=== PATIENT | male | born 1955 | race Caucasian/White ===

== ENCOUNTER 2017-02-06 15:23 | Inpatient (IN) ==
[2017-02-06 16:00] LABS: Basophils # 0.1 K/mcL (0.0-0.2); Basophils % 0.4 %; Hematocrit 38.3 % (37.5-50.1); Hemoglobin 12.5 g/dL (12.9-16.9); Immature Granulocytes % 0.6 % (0-4); Lymphocytes # 2.2 K/mcL (0.6-4.6); Lymphocytes % 14.3 %; Mean Corpuscular HGB Conc 32.6 g/dL (31.6-35.5); Mean Corpuscular Hemoglobin 26.7 pg (28.0-33.3); Mean Corpuscular Volume 81.8 fL (83.0-100.0); Mean Platelet Volume 10.7 fL (9.4-12.4); Monocytes # 2.2 K/mcL (0.0-1.3); Monocytes % 13.8 %; Neutrophils # 11.1 K/mcL (1.6-8.9); Platelet Count 288 K/mcL (140-400); Red Blood Count 4.68 M/mcL (4.19-5.50); Red Cell Distribution Width 15.3 % (11.5-14.5); Segmented Neutrophils % 70.9 %
[2017-02-06 16:19] LABS: INR 1.5; Prothrombin Time 16.6 Seconds (9.4-12.1)
[2017-02-06 16:22] LABS: Activated Partial Thrombo Time 31.3 Seconds (26.0-36.0)
[2017-02-06 16:49] LABS: BUN/Creatinine Ratio 12 (6-26); Blood Urea Nitrogen 13 mg/dL (8-26); Calcium 9.9 mg/dL (8.6-10.8); Carbon Dioxide 22 mEq/L (19-29); Chloride 101 mEq/L (98-109); Glucose 115 mg/dL (70-99); Osmolality,Calculated 285 (280-300); Potassium 3.7 mEq/L (3.5-4.5); Sodium 137 mEq/L (136-145); eGFR For African Americans > 60 (> 60); eGFR For Non-African Americans > 60 (> 60)
[2017-02-06] MEDS ORDERED: *HR* Heparin 5,000 UNIT/ML VIAL IVP PRN ×2 (16:54)
[2017-02-06] MEDS ORDERED: *HR* Heparin 5,000 UNIT/ML VIAL IVP ONE (16:54)
[2017-02-06] MEDS: Heparin 25,000 UNIT/500 ML D5W 25,000 UNIT/500 ML MLS IVC SCH (17:26)
--- NOTE | 2017-02-06 18:10 | Emergency Department Note ---
Disposition Clinical Impression: Pulmonary emboli Qualifiers: Pulmonary embolism type: other Chronicity: acute Acute cor pulmonale presence: without acute cor pulmonale Qualified Code(s): I26.99 - Other pulmonary embolism without acute cor pulmonale Deep venous thrombosis Qualifiers: DVT location: lower extremity Affected thrombotic vein of extremity: femoral Chronicity: acute Laterality: right Qualified Code(s): I82.411 - Acute embolism and thrombosis of right femoral vein Disposition: Admitted As Inpatient Condition: Good [facility] Care Provider[facility] - Time of Disposition: 18:32 General Adult HPI - General Chief complaint: ED Extremity Problem,Nontraumatic Stated complaint: DVT,PE Time Seen by Provider: 02/06/17 15:24 Source: patient, EMS Mode of arrival: EMS Limitations: no limitations Nursing Notes Reviewed: Yes Vital Signs Reviewed: Yes - History of Present Illness HPI Narrative: Patient presents from the [facility] for evaluation of DVT and pulmonary emboli. Shortness of breath about another facility. No other concerns or issues. He currently is on Onset (ago): day(s) Radiation: non-radiation Pain Scale: 0 Improves with: rest Worsens with: movement Associated symptoms: Reports: shortness of breath Treatments Prior to Arrival: none - Related Data Previous Rx's Medication Instructions Recorded Aspirin 81 mg PO DAILY #30 tab.chew 09/30/15 Diltiazem CD (24hr) [Cardizem CD] 120 mg PO DAILY #20 cap.er.24h 09/30/15 Allergies Allergy/AdvReac Type Severity Reaction Status Date / Time Horse/Equine Containing Allergy Rash Verified 09/30/15 17:04 Products meperidine [From Demerol] Allergy Flushing Verified 09/30/15 17:04 Penicillins [PCN] Allergy Anaphylaxis Verified 09/30/15 17:04 All systems ED: reviewed and negative except as stated. Review of Systems: As Per HPI Constitutional: Denies: fever, chills, weakness Cardiovascular: Reports: dyspnea on exertion, orthopnea. Denies: chest pain, palpitations, edema Respiratory: Reports: dyspnea. Denies: cough, wheezes, hemoptysis Gastrointestinal: Denies: nausea, vomiting, diarrhea Musculoskeletal: Denies: back pain, neck pain Neurological: Denies: headache Endocrine: Denies: fatigue Past Medical History - Past Medical History Attestation: Yes The following information was validated with the patient. Source: patient Medical history: Reports: arthritis, asthma, COPD, GERD, hyperlipidemia Psychiatric history: Reports: depression - Social History Smoking Status: Former smoker Smokeless Tobacco Status: No Alcohol use: Reports: none Drug use: Reports: marijuana Physical Exam - General Limitations: no limitations General appearance: alert - Head Head exam: atraumatic, normocephalic, normal inspection - Neck Neck exam: Present: normal inspection, full ROM, trachea midline - Chest Chest inspection: Present: normal inspection, symmetric chest wall rise - Respiratory Respiratory exam: Present: normal lung sounds bilaterally, respiratory distress. Absent: wheezes, stridor, accessory muscle use - Cardiovascular Cardiovascular exam: Present: regular rate, normal rhythm, normal heart sounds - Extremities Exam Extremities exam: Present: normal inspection, tenderness, normal capillary refill, calf tenderness - Back Exam Back exam: Present: normal inspection - Neurological Exam Neurological exam: Present: alert, oriented X3, CN II-XII intact, normal gait - Skin Skin exam: Present: warm, dry, intact, normal color Course Course Narrative: Patient seen and examined at the time of arrival. See history of present illness. 61-year-old male with known DVT presents with propagation of his DVT as well as bilateral pulmonary emboli. Seen in outside facility for evaluation and management. He is currently on anticoagulation Eliquis. He denies any chest pain fevers chills nausea vomiting or diarrhea. Denies any headache or vision change. He has had persistently worsening shortness of breath. Patient otherwise is comfortable and in no apparent distress on presentation but he is slightly anxious secondary to the new diagnosis. He is concerned about having some other medical issue. Vital signs reviewed on presentation patient is otherwise stable. EKG shows sinus rhythm with no acute signs of ST segment elevation or myocardial infarction. CT angiography as well as Dopplers were reviewed from the outside facility. Patient had coagulation studies ordered at this time as well as hemoglobin. He denies any rectal bleed as well as any history of bleeding disorder. A stat echocardiogram was ordered secondary to shortness of breath and clot burden to make sure he does not have any acute signs of right heart strain. Disposition will be admission the hospital heparin drip to be were started during this treatment course. Patient is otherwise stable resting comfortably in the bed. We will continue to monitor his treatment course is completed. - Reevaluation(s) Reevaluation #1: Patient found to have stable laboratory workup. Echo shows no acute signs of right heart strain. Consultation placed to the vascular surgeon to make sure there is no need for intervention including IVC filter. They will see the patient in consult. Conversation was had with the hospitalist Miguel Miller.. We reviewed the patient's presentation symptoms medical intervention. He will be brought the hospital for definitive management. No other recommendations or issues noted. Patient is otherwise stable resting comfortably in the bed at this time. Continue to monitor the patient here in the emergency room and to the admission process is completed Time: 18:29 Vital Signs Temperature 99.3 F 02/06/17 15:25 Pulse Rate 97 02/06/17 15:25 Respiratory Rate 18 02/06/17 15:25 Blood Pressure 137/90 02/06/17 15:25 O2 Sat by Pulse Oximetry 99 02/06/17 15:25 Temperature 99.3 F 02/06/17 15:25 Pulse Rate 97 02/06/17 16:50 Respiratory Rate 20 02/06/17 16:50 Blood Pressure 145/72 02/06/17 16:50 O2 Sat by Pulse Oximetry 97 02/06/17 16:50 Oxygen Delivery Oxygen Delivery Room Air Medical Decision Making - MDM Narrative Medical decision making narrative: Pulmonary emboli, lower extremity DVT - Medical Records Medical records reviewed: Yes I reviewed the patient's medical records. - Lab Data Lab results reviewed: Yes I reviewed the patient's lab results. Result diagrams: 02/06/17 15:52 02/06/17 15:52 Lab Results 02/06/17 02/06/17 02/06/17 Range/Units 15:52 15:52 15:52 WBC 15.6 H (4.3-11.1) K/mcL RBC 4.68 (4.19-5.50) M/mcL Hgb 12.5 L (12.9-16.9) g/dL Hct 38.3 (37.5-50.1) % MCV 81.8 L (83.0-100.0) fL MCH 26.7 L (28.0-33.3) pg MCHC 32.6 (31.6-35.5) g/dL RDW 15.3 H (11.5-14.5) % Plt Count 288 (140-400) K/mcL MPV 10.7 (9.4-12.4) fL Immature Gran % 0.6 (0-4) % Seg Neutrophils % 70.9 % Lymphocytes % 14.3 % Monocytes % 13.8 % Eosinophils % 0.0 % Basophils % 0.4 % Neutrophils # 11.1 H (1.6-8.9) K/mcL Lymphocytes # 2.2 (0.6-4.6) K/mcL Monocytes # 2.2 H (0.0-1.3) K/mcL Eosinophils # 0.0 (0.0-0.6) K/mcL Basophils # 0.1 (0.0-0.2) K/mcL PT 16.6 H (9.4-12.1) Seconds INR 1.5 APTT 31.3 (26.0-36.0) Seconds Sodium 137 (136-145) mEq/L Potassium 3.7 (3.5-4.5) mEq/L Chloride 101 (98-109) mEq/L Carbon Dioxide 22 (19-29) mEq/L BUN 13 (8-26) mg/dL Creatinine 1.09 (0.72-1.25) mg/dL Est GFR ( Amer) > 60 (> 60) Est GFR (Non-Af Amer) > 60 (> 60) BUN/Creatinine Ratio 12 (6-26) Glucose 115 H (70-99) mg/dL Calculated Osmolality 285 (280-300) Calcium 9.9 (8.6-10.8) mg/dL Troponin I (0-0.03) ng/mL 02/06/17 Range/Units 15:52 WBC (4.3-11.1) K/mcL RBC (4.19-5.50) M/mcL Hgb (12.9-16.9) g/dL Hct (37.5-50.1) % MCV (83.0-100.0) fL MCH (28.0-33.3) pg MCHC (31.6-35.5) g/dL RDW (11.5-14.5) % Plt Count (140-400) K/mcL MPV (9.4-12.4) fL Immature Gran % (0-4) % Seg Neutrophils % % Lymphocytes % % Monocytes % % Eosinophils % % Basophils % % Neutrophils # (1.6-8.9) K/mcL Lymphocytes # (0.6-4.6) K/mcL Monocytes # (0.0-1.3) K/mcL Eosinophils # (0.0-0.6) K/mcL Basophils # (0.0-0.2) K/mcL PT (9.4-12.1) Seconds INR APTT (26.0-36.0) Seconds Sodium (136-145) mEq/L Potassium (3.5-4.5) mEq/L Chloride (98-109) mEq/L Carbon Dioxide (19-29) mEq/L BUN (8-26) mg/dL Creatinine (0.72-1.25) mg/dL Est GFR ( Amer) (> 60) Est GFR (Non-Af Amer) (> 60) BUN/Creatinine Ratio (6-26) Glucose (70-99) mg/dL Calculated Osmolality (280-300) Calcium (8.6-10.8) mg/dL Troponin I 0.01 (0-0.03) ng/mL - Radiology Data Radiology results reviewed: Yes I reviewed the patient's radiology results. Reviewed from outside facility - EKG Data EKG #1 EKG attestation: Yes I reviewed and interpreted this EKG. EKG results narrative: Sinus rhythm based on EKG 96. Atenolol of 155. QRS duration of 102. QTC of 408. No acute signs of ST segment elevation myocardial infarction. Compared to EKG on 09/30/15 EKG shows normal: sinus rhythm, axis, intervals, QRS complexes, ST-T waves Rate: normal Critical Care Time Critical Care Time: Yes Total Critical Care Time: 35 Attestation: Critical care performed: Time is exclusive of separately billable procedures. Time includes: direct patient care, patient reassessment, coordination of patient care, interpretation of data (laboratory data, radiology data, and respiratory data), review of patient's medical records, medical consultation and documentation of patient care. Procedures included in critical care time: Procedures excluded from critical care time:
--- NOTE | 2017-02-06 20:04 | Internal Med History&Physical ---
Date of Encounter: 02/06/17 Time of Encounter: 19:59 Assessment and Plan (1) Pulmonary emboli Current visit: Yes Status: Acute Patient was diagnosed with right lower extremity DVT on January 05 and he was attempted to be treated with Eliquis. He failed anticoagulation treatment with Eliquis and now has returned with bilateral PE. Eliquis health and is stopped and IV heparin started. ER has consulted Dr. Berger for possible IVC filter it would be reasonable to switch him to Coumadin at this point after decision is made. Qualifiers: Pulmonary embolism type: other Chronicity: acute Acute cor pulmonale presence: without acute cor pulmonale Qualified Code(s): I26.99 - Other pulmonary embolism without acute cor pulmonale (2) Deep venous thrombosis Current visit: Yes Status: Acute Recently diagnosed right lower extremity DVT which has extended however I am is still not able to retrieve the today's ultrasound and CTA. 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 We noted he is on clindamycin? Need to review her record. Internal Medicine - H&P: HPI Chief complaint: Shortness of breath and right lower extremity pain Admitted From: Home Plans for Post Hospital Care: Home History of present illness: Mr. Devlin is a 61 year old male past medical history significant for recently diagnosed right lower extremity DVT, hypertension dyslipidemia SLE fibromyalgia and GERD. On 01/05/2017 he was diagnosed with right lower extremity DVT and was started on Eliquis. Since yesterday he has not been feeling well and pain has increased quite significantly. He was also becoming dyspneic. He came to the ER where he was diagnosed with bilateral PE as well as reconfirming right lower extremity DVT. I could not find those test in our record and her last nursing staff to bring a copy for us. In any case in ER there was a concern for right heart strain therefore an urgent echo was performed which showed normal LV ejection fraction as well as no wall motion abnormality and no right heart strain pattern. His Eliquis has been discontinued and now he is restarted on IV heparin. Vascular surgeon is consulted by ER with a question if he needs IV filter. At this time I think it would be reasonable to switch him to Coumadin. 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 He is a still on medication including Clindamycin ? ? for that. He had multiple surgeries in the past. He does not smoke neither does he have any history of cancer in the past. Past Med Surg Social Fam HX - Past Medical History Medical history: arthritis, asthma, COPD, GERD, hyperlipidemia Psychiatric history: depression - Social History Smoking Status: Former smoker Smokeless Tobacco Status: No Alcohol use: none Drug use: marijuana Internal Medicine - H&P: Meds Diltiazem CD (24hr) [Cardizem CD] 120 mg PO DAILY #20 cap.er.24h 09/30/15 [Rx] Acetaminophen [Tylenol] 650 mg PO TID 02/06/17 [History] Albuterol Sulfate [Albuterol Inhaler] 2 puff IH QID PRN 02/06/17 [History] Apixaban [Eliquis] 10 mg PO BID 02/06/17 [History] Atorvastatin Calcium [Lipitor] 20 mg PO HS 02/06/17 [History] Budesonide/Formoterol 160/4.5 [Symbicort 160/4.5] 2 puff IH BIDR 02/06/17 [ History] Cholecalciferol (D-3) [Vitamin D] 2,000 unit PO DAILY 02/06/17 [History] Clindamycin [Cleocin] 450 mg PO Q8H 02/06/17 [History] Flecainide 100 mg PO Q12HR 02/06/17 [History] Fluconazole [Diflucan] 400 mg PO DAILY 02/06/17 [History] Lisinopril [Zestril] 20 mg PO DAILY 02/06/17 [History] Loperamide HCl [Imodium A-D] 2 mg PO Q6H PRN 02/06/17 [History] Loratadine [Claritin] 10 mg PO DAILY 02/06/17 [History] Methocarbamol [Robaxin] 500 mg PO Q8HR 02/06/17 [History] Omeprazole [PriLOSEC] 20 mg PO BIDAC 02/06/17 [History] Pregabalin [Lyrica] 150 mg PO TID 02/06/17 [History] Salsalate [Disalcid] 750 mg PO BID 02/06/17 [History] Testosterone [Androgel] 20.25 mg TP DAILY 02/06/17 [History] Venlafaxine XR (24 HR) [Effexor XR] 150 mg PO DAILY 02/06/17 [History] guaiFENesin [Guaifenesin] 400 mg PO Q12H PRN 02/06/17 [History] hydroCHLOROthiazide [Hydrochlorothiazide] 12.5 mg PO DAILY 02/06/17 [History] 3 Allergy/AdvReac Type Severity Reaction Status Date / Time Horse/Equine Containing Allergy Rash Verified 09/30/15 17:04 Products meperidine [From Demerol] Allergy Flushing Verified 09/30/15 17:04 Penicillins [PCN] Allergy Anaphylaxis Verified 09/30/15 17:04 All Systems PM: A 10-system review of systems was performed and is negative for pertinent findings except as documented above in the HPI. - Constitutional Constitutional: excessive sweating, fatigue, no chills, no fever(s), no night sweats - EENT Eyes: no change in vision, no discharge, no pain, no photophobia Ears: no ear discharge, no ear pain, no tinnitus Nose, mouth and throat: no dysphagia, no nasal discharge, no neck pain, no sore throat - Cardiovascular Cardiovascular ROS IM: diaphoresis, dyspnea, no chest pain, no lightheadedness, no palpitations, no syncope - Respiratory Respiratory: no cough, no dyspnea, no wheezing, no excessive phlegm production - Gastrointestinal Gastrointestinal: no abdominal pain, no diarrhea, no hematemesis, no hematochezia, no melena, no nausea, no vomiting - Musculoskeletal Musculoskeletal ROS IM: no numbness, no tingling - Integumentary Integumentary IM: no rash, no unusual bruising - Neurological Neurological ROS: no confusion, no convulsions, no focal weakness, no numbness, no tingling, no tremor(s) - Hematologic/Lymphatic Hematologic/Lymphatic: no easy bruising - Constitutional Vitals: Temp Pulse Resp BP Pulse Ox 99.3 F 94 14 115/91 98 02/06/17 15:25 02/06/17 19:06 02/06/17 19:31 02/06/17 19:31 02/06/17 19:06 General appearance: Present: mild distress, A&O X 3, morbidly obese, pleasant, answers questions appropriately - Head Head exam: Present: atraumatic, normocephalic - Eye Eye exam: Present: PERRL, conjuntiva pink, sclera anicteric Pupils: Present: PERRL - Neck Neck exam general surgery: Present: supple, trachea midline. Absent: lymphadenopathy - Respiratory Respiratory exam: Present: decreased breath sounds. Absent: accessory muscle use, rales, rhonchi, wheezes - Cardiovascular Cardiovascular exam: Present: RRR, +S1, +S2. Absent: diastolic murmur, gallop, rubs, systolic murmur - GI/Abdominal GI/Abdominal exam: Present: normal bowel sounds, soft, no peritoneal signs. Absent: distended, tenderness - Extremities Exam Extremities exam: Present: warm, radial pulses palpable and symmetrical. Absent : calf tenderness, cyanotic, pedal edema - Neurological Exam Neurological exam: Present: CN II-XII intact, oriented X3, no focal deficits. Absent: pronater drift, facial droop, speech deficit - Skin Skin exam: Present: dry, intact Internal Med - H&P Results - Labs CBC & Chem 7: 02/06/17 15:52 02/06/17 15:52
[2017-02-06] MEDS ORDERED: Ondansetron 4 MG/2 ML VIAL IVP PRN (20:13)
[2017-02-06] MEDS ORDERED: Naloxone 0.4 MG/ML INJ IVP PRN (20:13)
[2017-02-06] MEDS ORDERED: GuaiFENesin Liq 200 MG/10 ML UDC PO PRN (20:18)
[2017-02-06] MEDS: SALSALATE 750 MG PO SCH (22:11)
[2017-02-06] MEDS: Pregabalin 75 MG CAPSULE PO SCH (22:18)
[2017-02-06] MEDS: *HR* HYDROcodone/Acet 5/325 mg TABLET PO PRN (22:18)
[2017-02-06] MEDS: 0.9 % Sodium Chloride 1,000 ML IVC SCH (22:19)
--- NOTE | 2017-02-06 23:13 | Vascular/Endovasc Consult Note ---
Date of Encounter: 02/06/17 Time of Encounter: 19:00 Assessment and Plan (1) Pulmonary emboli Current Visit: Yes Status: Acute The pathophysiology and natural history of deep vein thrombosis and pulmonary emboli was discussed with the patient and all questions were answered. The patient has a history of DVT nd was treated with apixiban. He now has a larger DVT and pulmonary emboli. He has failed apixiban and will likely need alternative anticoagulation with coumadin. Given the failure of anticoagulation , his decreased lung capacity due to prior lung resection and his recent pulmonary emboli. He may benefit from an IVC filter placement. The risks, benefits and alternatives were discussed and all questions were answered. Qualifiers: Pulmonary embolism type: other Chronicity: acute Acute cor pulmonale presence: without acute cor pulmonale Qualified Code(s): I26.99 - Other pulmonary embolism without acute cor pulmonale (2) Deep venous thrombosis Current Visit: Yes Status: Acute Qualifiers: DVT location: lower extremity Affected thrombotic vein of extremity: femoral Chronicity: acute Laterality: right Qualified Code(s): I82.411 - Acute embolism and thrombosis of right femoral vein (3) Hypertension Current Visit: Yes Status: Chronic He was counseled regarding atherosclerotic risk factor reduction. Qualifiers: Hypertension type: unspecified Qualified Code(s): I10 - Essential (primary ) hypertension (4) Dyslipidemia Current Visit: Yes Status: Chronic - History of Present Illness Consult date: 02/06/17 Requesting physician: Saman Smith Consult reason: Deep vein thrombosis, pulmonary embolus Chief complaint: Deep vein thrombosis, pulmonary embolus History of present illness: Mr. Devlin is a 61 year old male with a history of hypertension and hyperlipidemia. He reports that he developed acute leg pain and swelling in December. He was seen at the [facility] and was found to have a right lower extremity DVT. He was started on apixiban. He reports that he was discharged to home after several days. He was doing well until he recently developed progressive leg swelling and shortness of breath. He states that he returned to the [facility]. He was noted to have a more extensive DVT as well as pulmonary emboli on CT. He was then transferred to [facility] for further evaluation. He reports that he is feeling better since starting supplemental oxygen. He has also been started on a heparin drip. Vascular surgery was consulted for further evaluation. He denies chest pain. Past Med Surg Social Fam HX - Past Medical History Medical history: arthritis, asthma, cancer, COPD, DVT, GERD, hyperlipidemia, hypertension, seizures Psychiatric history: depression - Past Surgical History Surgical History: cancer surgery, colectomy, herniorrhaphy - Social History Smoking Status: Former smoker Smokeless Tobacco Status: No Alcohol use: none Drug use: marijuana - Family History Mother Living Status: Still Living Hx Family Cardiac Disorders: Yes (HTN) Hx Family Medical Disorders: Yes (lupus) Father Age: 87 Living Status: Still Living Hx Family Cardiac Disorders: Yes (stents) Medications and Allergies Diltiazem CD (24hr) [Cardizem CD] 120 mg PO DAILY #20 cap.er.24h 09/30/15 [Rx] Acetaminophen [Tylenol] 650 mg PO TID 02/06/17 [History] Albuterol Sulfate [Albuterol Inhaler] 2 puff IH QID PRN 02/06/17 [History] Apixaban [Eliquis] 10 mg PO BID 02/06/17 [History] Atorvastatin Calcium [Lipitor] 20 mg PO HS 02/06/17 [History] Budesonide/Formoterol 160/4.5 [Symbicort 160/4.5] 2 puff IH BIDR 02/06/17 [ History] Cholecalciferol (D-3) [Vitamin D] 2,000 unit PO DAILY 02/06/17 [History] Clindamycin [Cleocin] 450 mg PO Q8H 02/06/17 [History] Flecainide 100 mg PO Q12HR 02/06/17 [History] Fluconazole [Diflucan] 400 mg PO DAILY 02/06/17 [History] Lisinopril [Zestril] 20 mg PO DAILY 02/06/17 [History] Loperamide HCl [Imodium A-D] 2 mg PO Q6H PRN 02/06/17 [History] Loratadine [Claritin] 10 mg PO DAILY 02/06/17 [History] Methocarbamol [Robaxin] 500 mg PO Q8HR 02/06/17 [History] Omeprazole [PriLOSEC] 20 mg PO BIDAC 02/06/17 [History] Pregabalin [Lyrica] 150 mg PO TID 02/06/17 [History] Salsalate [Disalcid] 750 mg PO BID 02/06/17 [History] Testosterone [Androgel] 20.25 mg TP DAILY 02/06/17 [History] Venlafaxine XR (24 HR) [Effexor XR] 150 mg PO DAILY 02/06/17 [History] guaiFENesin [Guaifenesin] 400 mg PO Q12H PRN 02/06/17 [History] hydroCHLOROthiazide [Hydrochlorothiazide] 12.5 mg PO DAILY 02/06/17 [History] 3 Allergy/AdvReac Type Severity Reaction Status Date / Time Horse/Equine Containing Allergy Rash Verified 09/30/15 17:04 Products meperidine [From Demerol] Allergy Flushing Verified 09/30/15 17:04 Penicillins [PCN] Allergy Anaphylaxis Verified 09/30/15 17:04 All Systems Review: A 10-system review of systems was performed and is negative for pertinent findings except as documented above in the HPI. - Constitutional Constitutional: no chills, no fever(s) - Cardiovascular Cardiovascular: dyspnea on exertion, no chest pain at rest, no dyspnea at rest Exam Vital Signs, Last 4 Hours Temp Pulse Resp BP Pulse Ox 02/06/17 20:47 98.6 F 90 16 138/89 97 02/06/17 19:31 14 115/91 General: Present: Conversant, No Apparent Distress HEENT: Present: Atraumatic, Normocephaly, Trachea midline, Pupils equal Neck: Absent: JVD, Lymphadenopathy, Left Carotid bruit, Right Carotid bruit Cardiac: Present: Reg Rate and Rhythm, Normal S1 and S2, No Murmur Lungs: Present: Normal Breath Sounds, No Wheeze, Rales, Rhonchi Neuro: Present: Alert and responsive, No focal deficits noted, Motor nerves grossly intact, Sensory nerves grossly intact Abdomen: Present: Soft, Non-tender. Absent: Masses Vascular: Present: Normal capillary refill, Edema. Absent: Cyanosis Skin: Present: No rashes noted on visualized skin Musculoskeletal: Present: No Chest Wall Tenderness Consult Discharge Plan - Plan [facility]errals: [facility] [Primary Care Provider] -
[2017-02-06] MEDS: Ipratropium/Albuterol Neb 3 ML IH SCH (23:35)
[2017-02-06] MEDS: Budesonide/Formoterol 160/4.5 MDI IH SCH (23:36)
[2017-02-07] MEDS: Ipratropium/Albuterol Neb 3 ML IH SCH ×4 (03:39→23:18)
[2017-02-07] MEDS: Acetaminophen 325 MG TABLET PO PRN (04:12)
[2017-02-07 04:45] LABS: Basophils # 0.1 K/mcL (0.0-0.2); Basophils % 0.5 %; Eosinophils % 0.2 %; Hematocrit 36.3 % (37.5-50.1); Hemoglobin 11.6 g/dL (12.9-16.9); Immature Granulocytes % 0.7 % (0-4); Lymphocytes # 2.7 K/mcL (0.6-4.6); Lymphocytes % 21.8 %; Mean Corpuscular Hemoglobin 26.2 pg (28.0-33.3); Mean Corpuscular Volume 82.1 fL (83.0-100.0); Mean Platelet Volume 11.1 fL (9.4-12.4); Monocytes # 1.6 K/mcL (0.0-1.3); Neutrophils # 7.9 K/mcL (1.6-8.9); Platelet Count 264 K/mcL (140-400); Red Blood Count 4.42 M/mcL (4.19-5.50); Red Cell Distribution Width 15.4 % (11.5-14.5); Segmented Neutrophils % 63.8 %
[2017-02-07 05:06] LABS: BUN/Creatinine Ratio 14 (6-26); Blood Urea Nitrogen 15 mg/dL (8-26); Calcium 9.3 mg/dL (8.6-10.8); Carbon Dioxide 25 mEq/L (19-29); Chloride 102 mEq/L (98-109); Glucose 125 mg/dL (70-99); Osmolality,Calculated 286 (280-300); Potassium 3.2 mEq/L (3.5-4.5); Sodium 137 mEq/L (136-145); eGFR For African Americans > 60 (> 60); eGFR For Non-African Americans > 60 (> 60)
[2017-02-07] MEDS: *HR* HYDROcodone/Acet 5/325 mg TABLET PO PRN ×2 (05:41→20:28)
[2017-02-07] MEDS: Lisinopril 20 MG TABLET PO SCH (07:39)
[2017-02-07] MEDS: hydroCHLOROthiazide 25 MG TABLET PO SCH (07:39)
[2017-02-07] MEDS: SALSALATE 750 MG PO SCH ×2 (07:39→20:19)
[2017-02-07] MEDS: Cholecalciferol (D-3) 1,000 UNIT TABLET PO SCH (07:47)
[2017-02-07] MEDS: Pregabalin 75 MG CAPSULE PO SCH ×3 (07:47→20:29)
[2017-02-07] MEDS: Fluconazole 100 MG TABLET PO SCH (07:47)
[2017-02-07] MEDS: Diltiazem CD (24hr) 120 MG CAPSULE PO SCH (07:47)
[2017-02-07] MEDS: Venlafaxine XR (24 HR) 150 MG CAP.ER.24H PO SCH (07:47)
[2017-02-07] MEDS: Heparin 25,000 UNIT/500 ML D5W 25,000 UNIT/500 ML MLS IVC SCH (07:48)
[2017-02-07] MEDS ORDERED: Heparin 1,000 UNITS/500 mL NS 500 ML ONE (08:58)
--- NOTE | 2017-02-07 09:18 | Pre-Sedation Evaluation ---
Pre-sedation evaluation - Pre-sedation checklist Date of procedure: 02/07/17 Procedure: Venogram, inferior vena cava filter Recent Vitals: Last Vital Signs Temp 98.0 F 02/07/17 07:04 Pulse 85 02/07/17 07:04 Resp 18 02/07/17 07:04 BP 103/66 02/07/17 07:04 Pulse Ox 97 02/07/17 07:04 H&P (including ROS) documented in medical record: Yes Previous reaction to sedatives/anesthetics: No Dietary Status: NPO after Midnight ASA Classification *see protocol: CLASS III-Severe systemic disease Plan of Care: Pt appropriate candidate for procedure/moderate/conscious sedation , Risks/benefits of procedure/sedation discussed w/ patient/family
--- NOTE | 2017-02-07 10:05 | Invasive Diagnostic Lab Proc ---
Name: Jens Devlin Date of Study: 02/07/2017 Date: 1955 Ht: 170.0 in Medical Record#: [id number] Age: 61 Wt: 114 lb Gender: Male BSA: 2.23 Order #: [id number] BMI: 39.45 Physicians Performing MD: Marko Cotton MD Referring MD: Referring MD: Staff Name Position Time In Ines Cantu RT (R) Monitor Santiago Ramirez RT (R) Ene Dias RN [employer] Darlene Gould RN [employer] Indications DVT, Unilateral Pulmomary Embolism Procedures Performed IVC FILTER PLACEMENT Pre-Procedure Checklist Informed consent is complete signed and on chart. H&P is on chart. ID band is on and ID verified with patient. Patient NPO for procedure The procedure was described for the patient and questions were answered. ECG is on chart. Plan of Care Patient will tolerate the procedure without complications. Adequate level of comfort will be maintained. Hemodynamics will remain stable Patient will recover from procedure without complications. Respiratory function will be maintained. Cardiac rhythm will remain stable. Patient temperature will be maintained. Patient and/or family have verbalized understanding of the procedure. Patient Education Chief Complaint/Reason for Test: IVC filter Developmental Category: Adult (18-64 years) Learning Barriers: None Education Needs: Procedure Education Method: Verbal Information Taught: IVC filter Educational Evaluation: Able to repeat information Intravenous Access Time IV Size Location DC'd Fluid/Drip Rate Units RN 09:12 Started with 20g 1 1/4" Lt Antecubital mg/hr Allergies meperidine Penicillins Horse/Equine Containing Products Vital Signs Time BP Systolic BP Diastolic HR O2 Sats ASA 09:26 AM 09:26 AM 09:41 AM 09:22 AM 150 87 84 99 09:26 AM 145 90 82 95 09:31 AM 134 82 82 98 09:37 AM 129 48 83 89 09:41 AM 126 89 82 99 09:46 AM 133 89 85 99 09:51 AM 138 86 86 95 Procedure Medications Time Medication Dose Units Method Route 09:25 AM Oxygen 2 L/min nasal cannula 09:32 AM Lidocaine 2% 10 ml Subcutaneous 09:34 AM Lidocaine 2% 9 ml Subcutaneous Milly Score Preprocedure Postprocedure Activity 2- Moves 4 extremities sustained head lift Activity 2- Moves 4 extremities sustained head lift Circulation 2- SBP +/= 20 points of pre-anesthetic level Circulation 2- SBP +/= 20 points of pre-anesthetic level Consciousness 2- Awake and alert oriented x 3 Consciousness 2- Awake and alert oriented x 3 O2 Saturation 2- Able to maintain O2 satruation of 92% on room air O2 Saturation 2- Able to maintain O2 satruation of 92% on room air Respiratory 2- Able to deep breathe and cough well Respiratory 2- Able to deep breathe and cough well Total Score 10 Total Score 10 Contrast: Isovue 250- 150ml Contrast Amount: 6 ml Fluoro Dose: 320 mGy Procedure Log Time Note Entered By 09:24 AM Pt arrived to clinical lab specialist 1 at 09:24 y3 09:24 AM Physician arrived 09:24 3 09:24 AM Timur and gera completed 09:24 AM Sign in performed according to hospital policy. [email or web address] 09:24 AM Procedure start 09:24 09:24 AM Ines Cantu RT (R) Position: Monitor Time in: :24 09:24 AM Santiago Ramirez RT (R) Position: Scrub Time in: 09:24 09:24 AM Ene Fontaine RN Position: [employer] Time in: :24 09:24 AM Darlene Gould RN Position: [employer] Time in: 09:24 09:25 AM Case delayed: No 3 09:25 AM Hair removed from procedure site in holding area using clippers. Bilateral groin prepped with Chloraprep by Ines Cantu RT (R), safety strap applied then patient was draped. Skin intact. elle 09:25 AM :25 Oxygen at 2 L/min per nasal cannula by Ene Fontaine RN [email or web address] : AM Time: Is patient comfortable and pain free?: Yes [email or web address] : AM Time: LOC: 5 = Fully awake and oriented or at pre-proc level [email or web address] 09:29 AM Time out perfomed [email or web address] 09:30 AM Patient charges- Angio tray pack, Pulse Oximetry and ACIST tubing and transducer [facility] 09:30 AM Ultrasound, Sonosite, utilized to obtain vascular access [email or web address] 09:32 AM 09:32 10 ml Lidocaine 2% to left groin Subcutaneous Given By Marko Cotton MD [email or web address] 09:33 AM Patient Charges- Cook Celect IVC Filter ,Tray Pack and Pulse Oximetry. [email or web address] 09:34 AM Access obtain and IVC Filter sheath inserted Lt Femoral vein. [email or web address] 09:34 AM 09:34 9 ml Lidocaine 2% to left groin Subcutaneous Given By Marko Cotton MD [email or web address] 09:37 AM Inferiorvenacavagram performed. [email or web address] 09:39 AM IVC Filter inserted into the inferior vena cava [email or web address] 09:40 AM IVC Filter deployed into the inferior vena cava [email or web address] 09:40 AM Inferiorvenacavagram performed. [email or web address] 09:41 AM Time: 09:26 Is patient comfortable and pain free?: Yes [email or web address] 09:41 AM Time: 09:26LOC: 4 = Oriented but drowsy [email or web address] 09:43 AM Procedure completed at 09:43 [email or web address] 09:44 AM Sign Out completed: Radiation Dose 320.02 mGy Fluoro Time: 1.5 minutes. Isovue 250- 150ml contrast 6 ml given by Marko Cotton MD. Complications: None. Confirmed administered medications:Yes [email or web address] 09:44 AM Isovue 250- 150ml,1 bottle(s) used. [email or web address] 09:44 AM Post Blood Pressure: 126/89 [email or web address] 09:44 AM Post EKG: NSR [email or web address] 09:45 AM Information taught: IVC filter [email or web address] 09:45 AM Education needs: Procedure, Plan of Care, and Disease Process [email or web address] 09:45 AM Learning barriers: None [email or web address] 09:45 AM Education methods: Verbal [email or web address] 09:45 AM Education evaluation: Able to repeat information [email or web address] 09:45 AM Delay to floor: No [email or web address] 09:46 AM Complications: None [email or web address] 09:46 AM Fluoro Time: 1.5 minutes [email or web address] 09:46 AM Isovue 250- 150ml contrast 6 ml given by MD alexus [email or web address] 09:46 AM Radiation Dose 320.02 mGy [email or web address] 09:54 AM Report given to Yojana RN. Pt taken to , Room # 36 09:54 [email or web address] 09:58 AM Time: 09:41LOC: 5 = Fully awake and oriented or at pre-proc level [email or web address] 09:58 AM Time: 09:41 Is patient comfortable and pain free?: Yes [email or web address] 09:58 AM Complications: None [email or web address] 09[facility] AM Patient out of room 09:58 [email or web address] 09:21 AM PVIStat 09:21 AM Vitals capture started with the following parameters, Patient=Adult, Interval=5 min, Initial Rjznievk=463 mmHg, Deflation Rate=5 mmHg, Cuff placed on Right Arm 09:22 AM HR=84 bpm, XABM=748/87 mmhg, SpO2=99.0 %, Resp=14 B/min, Comment=NSR 09:23 AM Recorded ECG: HR=82 Condition=Condition 1 09:26 AM HR=82 bpm, LGRV=713/90 mmhg, SpO2=95.0 %, Resp=9 B/min, Comment=NSR 09:31 AM HR=82 bpm, MMDG=535/82 mmhg, SpO2=98.0 %, Resp=16 B/min, Comment=NSR 09:32 AM Recorded ECG: HR=84 Condition=Condition 1 09:37 AM HR=83 bpm, SJQE=602/48 mmhg, SpO2=89.0 %, Resp=13 B/min, Comment=NSR 09:41 AM HR=82 bpm, EKMU=648/89 mmhg, SpO2=99.0 %, Resp=14 B/min, Comment=NSR 09:42 AM Recorded ECG: HR=82 Condition=Condition 1 09:46 AM HR=85 bpm, AIOH=475/89 mmhg, SpO2=99.0 %, Resp=16 B/min, Comment=NSR 09:51 AM HR=86 bpm, SLXY=758/86 mmhg, SpO2=95.0 %, Resp=13 B/min, Comment=NSR 09:57 AM Vitals capture stopped. Post Procedure Information Blood Pressure: 126/89 mmHg Rhythm: NSR Post procedure instructions given Report Given To: Wing Farah Checks Time Location Status Staff Sheath In? Note 02/07/2017 9:59:00 AM Lt Groin No bleeding/ No Hematoma James, Santiago RT (R) Pulses Time Site Pre Procedure Post Procedure Note 02/07/2017 9:14:00 AM Bilateral DP & PT 2+ 2+ 02/07/2017 9:14:00 AM Bilateral radial 2+ Updated by Ines Cantu RT(R) on 02/07/2017 10:00:00 AM electronically signed on 02/07/2017 10:00:31 AM with status of Final
--- NOTE | 2017-02-07 10:12 | Procedure Note ---
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 Direct pressure held for hemostasis. Anesthesia: local Surgeon: Marko Cotton Estimated blood loss (cc): 1 Pathology: none sent Condition: stable Disposition: floor
[2017-02-07] MEDS: Budesonide/Formoterol 160/4.5 MDI IH SCH ×2 (11:11→20:59)
--- NOTE | 2017-02-07 19:14 | Internal Med Progress Note ---
Date of Encounter: 02/07/17 Time of Encounter: 11:00 - Assessment and plan (1) Pulmonary emboli Current Visit: Yes Status: Acute Assessment and plan: Patient hemodynamically stable on heparin IVC filter placed today Qualifiers: Pulmonary embolism type: other Chronicity: acute Acute cor pulmonale presence: without acute cor pulmonale Qualified Code(s): I26.99 - Other pulmonary embolism without acute cor pulmonale (2) Deep venous thrombosis Current Visit: Yes Status: Acute Assessment and plan: History of lower extremity DVT Qualifiers: DVT location: lower extremity Affected thrombotic vein of extremity: femoral Chronicity: acute Laterality: right Qualified Code(s): I82.411 - Acute embolism and thrombosis of right femoral vein (3) Hypertension Current Visit: Yes Status: Chronic Assessment and plan: Continue home medications Qualifiers: Hypertension type: unspecified Qualified Code(s): I10 - Essential (primary ) hypertension (4) Dyslipidemia Current Visit: Yes Status: Chronic Assessment and plan: Continue home medications - Subjective Interval history: No acute events overnight - Constitutional Vitals: Temp Pulse Resp BP Pulse Ox 98.2 F 89 20 119/76 97 02/07/17 15:54 02/07/17 15:54 02/07/17 16:24 02/07/17 15:54 02/07/17 16:24 General appearance: Present: mild distress, A&O X 3, morbidly obese, pleasant, answers questions appropriately - Cardiovascular Cardiovascular exam: Present: RRR, +S1, +S2. Absent: diastolic murmur, gallop, rubs, systolic murmur Internal Medicine: Result - Labs CBC & Chem 7: 02/07/17 04:07 02/07/17 09:03 Labs: Short CBC 02/07/17 Range/Units 04:07 WBC 12.4 H (4.3-11.1) K/mcL Hgb 11.6 L (12.9-16.9) g/dL Hct 36.3 L (37.5-50.1) % Plt Count 264 (140-400) K/mcL Neutrophils # 7.9 (1.6-8.9) K/mcL BMP 02/07/17 02/07/17 04:07 09:03 Sodium 137 Potassium 3.2 L 3.4 L Chloride 102 Carbon Dioxide 25 BUN 15 Creatinine 1.06 Glucose 125 H Calcium 9.3 Cardiac Enzymes 10/10/17 10/11/17 10/11/17 Range/Units 21:15 04:07 09:03 Troponin I 0.01 0.01 0.01 (0-0.03) ng/mL - ABG Interpretation ABG results: PT/INR, D-dimer PT 16.6 Seconds (9.4-12.1) H 02/06/17 15:52 Consult Discharge Plan - Plan [facility]errals: [facility] [Primary Care Provider] -
--- NOTE | 2017-02-07 20:12 | Electrocardiograph Report ---
[place] [address] Test Date: 2017-02-06 Pat Name: Jens Devlin Department: 103 Room: 3B Gender: M [employer] Cook: AME : 1955 Requested By: Saman Smith Order Number: [id number] Reading MD: Mikal Davis MD Measurements Intervals Mobile Rate: 96 P: 26 TN: 155 QRS: 13 QRSD: 102 T: 55 QT: 354 QTc: 408 Interpretive Statements SINUS RHYTHM Electronically Signed On 02-07-2017 20:10:52 EDT by Mikal Davis MD
[2017-02-07] MEDS: 0.9 % Sodium Chloride 1,000 ML IVC SCH (23:29)
[2017-02-08] MEDS: Heparin 25,000 UNIT/500 ML D5W 25,000 UNIT/500 ML MLS IVC SCH (00:31)
[2017-02-08] MEDS: Ipratropium/Albuterol Neb 3 ML IH SCH ×4 (03:30→22:43)
[2017-02-08] MEDS: Acetaminophen 325 MG TABLET PO PRN (06:11)
[2017-02-08] MEDS: Cholecalciferol (D-3) 1,000 UNIT TABLET PO SCH (08:57)
[2017-02-08] MEDS: Pregabalin 75 MG CAPSULE PO SCH ×3 (08:57→20:03)
[2017-02-08] MEDS: Diltiazem CD (24hr) 120 MG CAPSULE PO SCH (08:58)
[2017-02-08] MEDS: Venlafaxine XR (24 HR) 150 MG CAP.ER.24H PO SCH (08:58)
[2017-02-08] MEDS: Lisinopril 20 MG TABLET PO SCH (08:58)
[2017-02-08] MEDS: Fluconazole 100 MG TABLET PO SCH (08:59)
[2017-02-08] MEDS: hydroCHLOROthiazide 25 MG TABLET PO SCH (08:59)
[2017-02-08] MEDS: SALSALATE 750 MG PO SCH ×2 (09:19→23:29)
[2017-02-08] MEDS: Budesonide/Formoterol 160/4.5 MDI IH SCH ×2 (10:54→20:15)
[2017-02-08] MEDS: Albuterol 2.5 MG/3 ML NEBULIZER IH PRN ×2 (10:54→10:55)
--- NOTE | 2017-02-08 16:23 | Event Note ---
Date of Encounter: 02/08/17 Time of Encounter: 16:21 I spoke to hospitalist this afternoon. Chart reviewed. I spoke with Dr Vieyra, Hem/Onc relations manager with me. Best choice is transition from Heparin Drip to xarelto 20mg daily. Renal functions normal. Official consult late this evening or in the morning.
--- NOTE | 2017-02-08 17:19 | Internal Med Progress Note ---
Date of Encounter: 02/08/17 Time of Encounter: 11:00 - Assessment and plan (1) Pulmonary emboli Current Visit: Yes Status: Acute Assessment and plan: -Patient with history of DVT December 2016 and was started on Eliquis -He now presents with pulmonary embolism on Eliquis. -IVC filter was placed on 02/07/17. -Patient is hemodynamically stable and currently on room air (not requiring supplemental oxygenation). -Discussed with concierge receptionist/oncologist NAOMY who recommends starting patient on Xarelto. -Appreciate further recommendations from concierge receptionist/oncologist team. Qualifiers: Pulmonary embolism type: other Chronicity: acute Acute cor pulmonale presence: without acute cor pulmonale Qualified Code(s): I26.99 - Other pulmonary embolism without acute cor pulmonale (2) Deep venous thrombosis Current Visit: Yes Status: Acute Assessment and plan: History of lower extremity DVT as above Qualifiers: DVT location: lower extremity Affected thrombotic vein of extremity: femoral Chronicity: acute Laterality: right Qualified Code(s): I82.411 - Acute embolism and thrombosis of right femoral vein (3) Hypertension Current Visit: Yes Status: Chronic Assessment and plan: Continue home medications Qualifiers: Hypertension type: unspecified Qualified Code(s): I10 - Essential (primary ) hypertension (4) Dyslipidemia Current Visit: Yes Status: Chronic Assessment and plan: Continue home medications - Subjective Interval history: Patient remains hemodynamically stable and on room air; not requiring supplemental oxygen. - Constitutional Vitals: Temp Pulse Resp BP Pulse Ox 98.7 F 88 16 137/54 93 02/08/17 14:45 02/08/17 14:45 02/08/17 15:41 02/08/17 14:45 02/08/17 15:41 General appearance: Present: mild distress, A&O X 3, morbidly obese, pleasant, answers questions appropriately - Respiratory Respiratory exam: Present: CTAB. Absent: accessory muscle use, rales, rhonchi, wheezes - Cardiovascular Cardiovascular exam: Present: RRR, +S1, +S2. Absent: diastolic murmur, gallop, rubs, systolic murmur Internal Medicine: Result - Labs CBC & Chem 7: 02/07/17 04:07 02/07/17 09:03 - ABG Interpretation ABG results: PT/INR, D-dimer PT 16.6 Seconds (9.4-12.1) H 02/06/17 15:52 Consult Discharge Plan - Plan Referrals: [facility] [Primary Care Provider] -
[2017-02-08] MEDS ORDERED: *HR* Rivaroxaban 10 MG TABLET PO SCH (17:45)
--- NOTE | 2017-02-08 17:55 | Oncology Inp Consult Note ---
<Dinesh Cam Jr - Last Filed: 02/08/17 18:09> Date of Encounter: 02/08/17 Time of Encounter: 17:00 Assessment and Plan (1) Pulmonary emboli Status: Acute Assessment and plan: This is a very pleasant 61-year-old male patient of the [facility] system, with a history of right lower extremity deep vein thrombosis on 01/05/2017. The patient was placed on eliquis 10mg PO twice daily. Over the last several days, patient had chest pain or difficulty breathing. He went to emergency department at [facility], was found to have bilateral pulmonary emboli on CT scan of the chest. Due to patient's history, he was transferred to [facility] for vascular surgery and hematology evaluation. Dr Cotton placed an IVC filter on 02/07/17. Multiple risk factors for blood clots; obesity, former smoker, former drinker, multiple comorbidities, peripheral vascular disease as well as previous diagnosis of DVT 1 month ago. He states that Lovenox and Coumadin were considerations by [facility] physicians last month, however; due to the patient's multiple home medications, and comorbidities, it was decided to use eliquis. The patient has clotted through the eliquis, so our plan is to transition off heparin drip to Xarelto 20 mg daily. While coumadin can be a good choice in this setting, we considered alternatives due to patient history and preference. Due to polypharmacy, this may interact with a drug such as warfarin, and cause fluctuating increases in INR level. The patient states he is on "32 pills daily ", but it is not reflected in his record or reconciliation. Also, the patient states he had 43 surgeries in his lifetime. The patient likes the benefit of not having to stop the blood thinner a week prior to procedure, versus 1 day in case he has another elective surgery. He also likes the convenience of not doing frequent blood testing/INR levels. Earlier this year, he was diaggnosed with atypical bacterial and fungal lung infections with surgery and bronchoscopy with multiple antibiotic and antifungal regimens that can be contraindicated with warfarin. With these above considerations, continue xarelto 20mg daily and follow up with hematology at [place]. If he wants to follow with [facility], he can arrange that through his team at the [facility], and we would be happy to see him as an outpatient if approved. OK to discharge when medically stable tomorrow, after Dr Vieyra assesses the patient tomorrow morning. Case discussed with her this evening, and she agrees with plan of care. Qualifiers: Pulmonary embolism type: other Chronicity: acute Acute cor pulmonale presence: without acute cor pulmonale Qualified Code(s): I26.99 - Other pulmonary embolism without acute cor pulmonale (2) Deep venous thrombosis Status: Acute Qualifiers: DVT location: lower extremity Affected thrombotic vein of extremity: femoral Chronicity: acute Laterality: right Qualified Code(s): I82.411 - Acute embolism and thrombosis of right femoral vein - Data of Consult Patient: new to practice Consult date: 02/08/17 Requesting Physician: Thuy Leiva CNP Primary Care Provider: PCP [facility] - Consult Narrative Reason for consult: new pulmonary emboli, history RLE DVT History of present illness: Mr. Devlin is a 61 year old male with known history of RLE DVT diagnosed 01/05/17 through [facility] system. He was placed on eliquis 10mg PO BID. The last several days, the patient states she had shortness of breath and chest pain. He went to the emergency room through the [facility] system and was found to have bilateral pulmonary emboli as well as enlargement of right lower extremity DVT As concern for complications, like right heart strain. He was transferred to [facility] for further evaluation. The ER there ordered an urgent echo which showed normal LV ejection fraction as well as no wall motion abnormality and no right heart strain pattern. His Eliquis was discontinued and placed on IV heparin. Vascular surgeon was consulted and placed IV filter on 02/07/17. 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 He has been on multiple antibiotic and antifungal medications over the last several months. He states that he has 43 surgeries in his lifetime. A former smoker, quitting in the 1980s, and a former drinker, but never followed himself is an alcoholic. Patient is hemodynamically stable and currently on room air (not requiring supplemental oxygenation). The [facility] hematology group was consult for further recommendations for anticoagulation. Past Med Surg Social Fam HX - Past Medical History Medical history: arthritis, asthma, cancer, COPD, DVT, GERD, hyperlipidemia, hypertension, seizures Psychiatric history: depression - Past Surgical History Surgical History: cancer surgery, colectomy, herniorrhaphy - Social History Smoking Status: Former smoker Smokeless Tobacco Status: No Alcohol use: none Drug use: marijuana - Family History Mother Living Status: Still Living Hx Family Cardiac Disorders: Yes (HTN) Hx Family Medical Disorders: Yes (lupus) Father Age: 87 Living Status: Still Living Hx Family Cardiac Disorders: Yes (stents) Medications and Allergies Diltiazem CD (24hr) [Cardizem CD] 120 mg PO DAILY #20 cap.er.24h 09/30/15 [Rx] Acetaminophen [Tylenol] 650 mg PO TID 02/06/17 [History] Albuterol Sulfate [Albuterol Inhaler] 2 puff IH QID PRN 02/06/17 [History] Atorvastatin Calcium [Lipitor] 20 mg PO HS 02/06/17 [History] Budesonide/Formoterol 160/4.5 [Symbicort 160/4.5] 2 puff IH BIDR 02/06/17 [ History] Cholecalciferol (D-3) [Vitamin D] 2,000 unit PO DAILY 02/06/17 [History] Clindamycin [Cleocin] 450 mg PO Q8H 02/06/17 [History] Flecainide 100 mg PO Q12HR 02/06/17 [History] Fluconazole [Diflucan] 400 mg PO DAILY 02/06/17 [History] Lisinopril [Zestril] 20 mg PO DAILY 02/06/17 [History] Loperamide HCl [Imodium A-D] 2 mg PO Q6H PRN 02/06/17 [History] Loratadine [Claritin] 10 mg PO DAILY 02/06/17 [History] Methocarbamol [Robaxin] 500 mg PO Q8HR 02/06/17 [History] Omeprazole [PriLOSEC] 20 mg PO BIDAC 02/06/17 [History] Pregabalin [Lyrica] 150 mg PO TID 02/06/17 [History] Salsalate [Disalcid] 750 mg PO BID 02/06/17 [History] Testosterone [Androgel] 20.25 mg TP DAILY 02/06/17 [History] Venlafaxine XR (24 HR) [Effexor Xr] 150 mg PO DAILY 02/06/17 [History] guaiFENesin [Guaifenesin] 400 mg PO Q12H PRN 02/06/17 [History] hydroCHLOROthiazide [Hydrochlorothiazide] 12.5 mg PO DAILY 02/06/17 [History] Rivaroxaban [Xarelto] 20 mg PO 1700 #30 tablet 02/09/17 [Rx] Rivaroxaban [Xarelto] 20 mg PO DAILY #30 tablet 02/09/17 [Rx] 3 Allergy/AdvReac Type Severity Reaction Status Date / Time Horse/Equine Containing Allergy Rash Verified 09/30/15 17:04 Products meperidine [From Demerol] Allergy Flushing Verified 09/30/15 17:04 Penicillins [PCN] Allergy Anaphylaxis Verified 09/30/15 17:04 Cardiovascular: Present: chest pain Musculoskeletal: Present: muscle cramps (right upper leg) Oncology - Exam - Constitutional Vitals: Temp Pulse Resp BP Pulse Ox 98.7 F 88 16 137/54 93 02/08/17 14:45 02/08/17 14:45 02/08/17 15:41 02/08/17 14:45 02/08/17 15:41 General appearance: morbidly obese - Head Head exam: Present: atraumatic, normal inspection - Eye Eye exam: Present: normal appearance, PERRL - ENT ENT exam: Present: mucous membranes moist - Neck Neck exam: Present: full ROM, normal inspection - Respiratory Respiratory exam: Present: CTAB - Cardiovascular Cardiovascular exam: Present: RRR, +S1, +S2 - GI/Abdominal GI/Abdominal exam: Present: normal bowel sounds, soft - Extremities Exam Extremities exam: Present: joint swelling, pedal edema (bilateral) - Neurological Exam Neurological exam: Present: alert, oriented X3, no focal deficits - Psychiatric Psychiatric exam: Present: normal affect, normal mood - Skin Skin exam: Present: dry, intact, warm Oncology - Results Labs: Laboratory Last Values WBC 12.4 K/mcL (4.3-11.1) H 02/07/17 04:07 RBC 4.42 M/mcL (4.19-5.50) 02/07/17 04:07 Hgb 11.6 g/dL (12.9-16.9) L 02/07/17 04:07 Hct 36.3 % (37.5-50.1) L 02/07/17 04:07 MCV 82.1 fL (83.0-100.0) L 02/07/17 04:07 MCH 26.2 pg (28.0-33.3) L 02/07/17 04:07 MCHC 32.0 g/dL (31.6-35.5) 02/07/17 04:07 RDW 15.4 % (11.5-14.5) H 02/07/17 04:07 Plt Count 264 K/mcL (140-400) 02/07/17 04:07 MPV 11.1 fL (9.4-12.4) 02/07/17 04:07 Immature Gran % 0.7 % (0-4) 02/07/17 04:07 Seg Neutrophils % 63.8 % 02/07/17 04:07 Lymphocytes % 21.8 % 02/07/17 04:07 Monocytes % 13.0 % 02/07/17 04:07 Eosinophils % 0.2 % 02/07/17 04:07 Basophils % 0.5 % 02/07/17 04:07 Neutrophils # 7.9 K/mcL (1.6-8.9) 02/07/17 04:07 Lymphocytes # 2.7 K/mcL (0.6-4.6) 02/07/17 04:07 Monocytes # 1.6 K/mcL (0.0-1.3) H 02/07/17 04:07 Eosinophils # 0.0 K/mcL (0.0-0.6) 02/07/17 04:07 Basophils # 0.1 K/mcL (0.0-0.2) 02/07/17 04:07 PT 16.6 Seconds (9.4-12.1) H 02/06/17 15:52 INR 1.5 02/06/17 15:52 APTT 65.1 Seconds (26.0-36.0) H 02/08/17 04:44 Sodium 137 mEq/L (136-145) 02/07/17 04:07 Potassium 3.4 mEq/L (3.5-4.5) L 02/07/17 09:03 Chloride 102 mEq/L (98-109) 02/07/17 04:07 Carbon Dioxide 25 mEq/L (19-29) 02/07/17 04:07 BUN 15 mg/dL (8-26) 02/07/17 04:07 Creatinine 1.06 mg/dL (0.72-1.25) 02/07/17 04:07 Est GFR ( Amer) > 60 (> 60) 02/07/17 04:07 Est GFR (Non-Af Amer) > 60 (> 60) 02/07/17 04:07 BUN/Creatinine Ratio 14 (6-26) 02/07/17 04:07 Glucose 125 mg/dL (70-99) H 02/07/17 04:07 Calculated Osmolality 286 (280-300) 02/07/17 04:07 Calcium 9.3 mg/dL (8.6-10.8) 02/07/17 04:07 Troponin I 0.01 ng/mL (0-0.03) 02/07/17 09:03 Consult Discharge Plan - Plan Instructions: Pulmonary Embolism (DC), Deep Venous Thrombosis (DC) [facility]: [facility] [Primary Care Provider] - Prescriptions: Rivaroxaban [Xarelto] 20 mg PO DAILY #30 tablet Rivaroxaban [Xarelto] 20 mg PO 1700 #30 tablet <Vivienne Vieyra - Last Filed: 02/09/17 16:45> Date of Encounter: 02/09/17 Assessment and Plan (1) Pulmonary emboli Status: Acute Qualifiers: Pulmonary embolism type: other Chronicity: acute Acute cor pulmonale presence: without acute cor pulmonale Qualified Code(s): I26.99 - Other pulmonary embolism without acute cor pulmonale - Data of Consult Requesting Physician: Freddy Sweet Primary Care Provider: PCP [facility] - Consult Narrative History of present illness: I examined this patient and my medical decision-making was reviewed with the Advanced Practice Nurse, Puneet Cam. I agree with the documented findings, disposition and treatment plan as described except to the extent set forth below. Oncology - Exam - Constitutional Vitals: Temp Pulse Resp BP Pulse Ox 98.2 F 83 18 136/79 95 02/09/17 11:40 02/09/17 11:40 02/09/17 11:40 02/09/17 11:40 02/09/17 11:40 Oncology - Results Labs: Short CBC 02/09/17 Range/Units 09:04 WBC 9.4 (4.3-11.1) K/mcL Hgb 11.5 L (12.9-16.9) g/dL Hct 35.9 L (37.5-50.1) % Plt Count 302 (140-400) K/mcL Neutrophils # 6.6 (1.6-8.9) K/mcL BMP 02/09/17 09:04 Sodium 139 Potassium 3.9 Chloride 106 Carbon Dioxide 23 BUN 14 Creatinine 0.95 Glucose 111 H Calcium 9.7
[2017-02-08] MEDS: 0.9 % Sodium Chloride 1,000 ML IVC SCH (20:10)
[2017-02-09] MEDS: Ipratropium/Albuterol Neb 3 ML IH SCH ×2 (03:55→10:53)
--- NOTE | 2017-02-09 07:08 | Vascular/[facility] Progress Note ---
Date of Encounter: 02/08/17 Time of Encounter: 18:30 - Assessment and plan (1) Pulmonary emboli Current Visit: Yes Status: Acute The patient has a history of DVT nd was treated with apixiban. He then developed extension of his DVT and pulmonary emboli. An inferior vena cava filter was placed. He has no hematoma. He is now taking Xarelto. He reports improvement of his symptoms. He was reminded to seek immediate medical attention for recurrent symptoms. He may follow-up in vascular clinic in 1 month. Qualifiers: Pulmonary embolism type: other Chronicity: acute Acute cor pulmonale presence: without acute cor pulmonale Qualified Code(s): I26.99 - Other pulmonary embolism without acute cor pulmonale (2) Deep venous thrombosis Current Visit: Yes Status: Acute Qualifiers: DVT location: lower extremity Affected thrombotic vein of extremity: femoral Chronicity: acute Laterality: right Qualified Code(s): I82.411 - Acute embolism and thrombosis of right femoral vein (3) Hypertension Current Visit: Yes Status: Chronic He was again counseled regarding atherosclerotic risk factor reduction. Qualifiers: Hypertension type: unspecified Qualified Code(s): I10 - Essential (primary ) hypertension (4) Dyslipidemia Current Visit: Yes Status: Chronic - Subjective Interval history: The patient reports that he is feeling better today. He reports that his breathing is easier. He denies chest pain. He reports that his legs also feel better. Vital Signs, Last 4 Hours Temp Pulse Resp BP Pulse Ox 02/09/17 03:55 20 95 02/09/17 03:43 97.9 F 77 18 117/73 96 - Physical Examination General: Present: Conversant, No Apparent Distress HEENT: Present: Pupils equal Cardiac: Present: Reg Rate and Rhythm Lungs: Present: Normal Breath Sounds, No Wheeze, Rales, Rhonchi Neuro: Present: Alert and responsive, No focal deficits noted, Motor nerves grossly intact, Sensory nerves grossly intact Vascular: Present: Normal capillary refill, Edema (1+ edema), Other (no hematoma ). Absent: Cyanosis Abdomen: Present: Soft, Non-tender Skin: Present: No rashes noted on visualized skin Results 02/07/17 04:07 02/07/17 09:03 Consult Discharge Plan - Plan [facility]errals: [facility] [Primary Care Provider] -
[2017-02-09] MEDS: Venlafaxine XR (24 HR) 150 MG CAP.ER.24H PO SCH (08:47)
[2017-02-09] MEDS: Lisinopril 20 MG TABLET PO SCH (08:47)
[2017-02-09] MEDS: Fluconazole 100 MG TABLET PO SCH (08:48)
[2017-02-09] MEDS: hydroCHLOROthiazide 25 MG TABLET PO SCH (08:48)
[2017-02-09] MEDS: Cholecalciferol (D-3) 1,000 UNIT TABLET PO SCH (08:48)
[2017-02-09] MEDS: Pregabalin 75 MG CAPSULE PO SCH (08:48)
[2017-02-09] MEDS: Diltiazem CD (24hr) 120 MG CAPSULE PO SCH (08:48)
[2017-02-09 10:01] LABS: Basophils # 0.1 K/mcL (0.0-0.2); Basophils % 0.6 %; Eosinophils # 0.1 K/mcL (0.0-0.6); Eosinophils % 0.5 %; Hematocrit 35.9 % (37.5-50.1); Hemoglobin 11.5 g/dL (12.9-16.9); Immature Granulocytes % 0.6 % (0-4); Lymphocytes # 1.8 K/mcL (0.6-4.6); Lymphocytes % 18.6 %; Mean Corpuscular Hemoglobin 26.6 pg (28.0-33.3); Mean Corpuscular Volume 82.9 fL (83.0-100.0); Mean Platelet Volume 10.8 fL (9.4-12.4); Monocytes # 0.9 K/mcL (0.0-1.3); Monocytes % 9.1 %; Neutrophils # 6.6 K/mcL (1.6-8.9); Platelet Count 302 K/mcL (140-400); Red Blood Count 4.33 M/mcL (4.19-5.50); Red Cell Distribution Width 15.2 % (11.5-14.5); Segmented Neutrophils % 70.6 %
[2017-02-09 10:12] LABS: BUN/Creatinine Ratio 15 (6-26); Blood Urea Nitrogen 14 mg/dL (8-26); Calcium 9.7 mg/dL (8.6-10.8); Carbon Dioxide 23 mEq/L (19-29); Chloride 106 mEq/L (98-109); Glucose 111 mg/dL (70-99); Osmolality,Calculated 289 (280-300); Potassium 3.9 mEq/L (3.5-4.5); Sodium 139 mEq/L (136-145); eGFR For African Americans > 60 (> 60); eGFR For Non-African Americans > 60 (> 60)
[2017-02-09] MEDS: Budesonide/Formoterol 160/4.5 MDI IH SCH (10:53)
[2017-02-09 11:58] VITALS: BP 136/79
[2017-02-09] MEDS: SALSALATE 750 MG PO SCH (13:22)
--- NOTE | 2017-02-09 13:59 | Discharge Summary ---
Date of Encounter: 02/09/17 Time of Encounter: 12:00 - Discharge Diagnosis (1) Pulmonary emboli Priority: Primary Status: Acute Qualifiers: Pulmonary embolism type: other Chronicity: acute Acute cor pulmonale presence: without acute cor pulmonale Qualified Code(s): I26.99 - Other pulmonary embolism without acute cor pulmonale (2) Deep venous thrombosis Priority: Primary Status: Acute Qualifiers: DVT location: lower extremity Affected thrombotic vein of extremity: femoral Chronicity: acute Laterality: right Qualified Code(s): I82.411 - Acute embolism and thrombosis of right femoral vein (3) Hypertension Priority: Secondary Status: Chronic Qualifiers: Hypertension type: unspecified Qualified Code(s): I10 - Essential (primary ) hypertension (4) Dyslipidemia Priority: Secondary Status: Chronic - Discharge Medications Prescriptions: Rivaroxaban [Xarelto] 20 mg PO DAILY #30 tablet Rivaroxaban [Xarelto] 20 mg PO 1700 #30 tablet Home Medications: Diltiazem CD (24hr) [Cardizem CD] 120 mg PO DAILY #20 cap.er.24h 09/30/15 [Rx] Acetaminophen [Tylenol] 650 mg PO TID 02/06/17 [History] Albuterol Sulfate [Albuterol Inhaler] 2 puff IH QID PRN 02/06/17 [History] Atorvastatin Calcium [Lipitor] 20 mg PO HS 02/06/17 [History] Budesonide/Formoterol 160/4.5 [Symbicort 160/4.5] 2 puff IH BIDR 02/06/17 [ History] Cholecalciferol (D-3) [Vitamin D] 2,000 unit PO DAILY 02/06/17 [History] Clindamycin [Cleocin] 450 mg PO Q8H 02/06/17 [History] Flecainide 100 mg PO Q12HR 02/06/17 [History] Fluconazole [Diflucan] 400 mg PO DAILY 02/06/17 [History] Lisinopril [Zestril] 20 mg PO DAILY 02/06/17 [History] Loperamide HCl [Imodium A-D] 2 mg PO Q6H PRN 02/06/17 [History] Loratadine [Claritin] 10 mg PO DAILY 02/06/17 [History] Methocarbamol [Robaxin] 500 mg PO Q8HR 02/06/17 [History] Omeprazole [PriLOSEC] 20 mg PO BIDAC 02/06/17 [History] Pregabalin [Lyrica] 150 mg PO TID 02/06/17 [History] Salsalate [Disalcid] 750 mg PO BID 02/06/17 [History] Testosterone [Androgel] 20.25 mg TP DAILY 02/06/17 [History] Venlafaxine XR (24 HR) [Effexor Xr] 150 mg PO DAILY 02/06/17 [History] guaiFENesin [Guaifenesin] 400 mg PO Q12H PRN 02/06/17 [History] hydroCHLOROthiazide [Hydrochlorothiazide] 12.5 mg PO DAILY 02/06/17 [History] Rivaroxaban [Xarelto] 20 mg PO 1700 #30 tablet 02/09/17 [Rx] Rivaroxaban [Xarelto] 20 mg PO DAILY #30 tablet 02/09/17 [Rx] Allergies/Adverse Reactions: 3 Allergy/AdvReac Type Severity Reaction Status Date / Time Horse/Equine Containing Allergy Rash Verified 09/30/15 17:04 Products meperidine [From Demerol] Allergy Flushing Verified 09/30/15 17:04 Penicillins [PCN] Allergy Anaphylaxis Verified 09/30/15 17:04 Procedures/tests Complete & Pending: Procedures Performed prior 72 hours Category Date Time Status CL IVC Filter [CL] Stat [employer] 02/07/17 09:02 Ordered Date of admission: 02/06/17 20:13 Primary care physician: [facility]CP [facility] Consults: 02/08/17 15:39 Consult to Oncology Hematology [CONS] Routine Consulting Provider: Dinesh Cam Jr Reason for Consult: failed OAC Call Completed: Yes - Patient Status Disposition: Home, Self-Care Condition: Good - Discharge Instructions Follow Up With: [facility] [Primary Care Provider] - Hospital course: Patient is a 61 year old male with past medical history significant for recently diagnosed right lower extremity DVT (12/2016) on Eliquis, hypertension, dyslipidemia, SLE fibromyalgia and GERD who presented to the ER on 02/06/17 with shortness of breath. Symptoms were present approximately one day prior to admission so he decided to come to the ER for further evaluation. In the ER, he was found to have bilateral PE on CT angiogram of the chest. He was started on IV heparin and admitted to the medical floor for further management and evaluation. During patients hospital stay, vascular surgery was consulted for recommendations for IVC filter which was placed on 02/07/17. Patient remained hemodynamically stable and did not require oxygen supplementation. Hematology/oncology was also consult with recommendations to start patient on Xarelto and to follow up as outpatient. Patient will be discharged to take Xarelto daily and to follow-up with ID clinic. - Time Spent with Patient Total time spent providing and/or coordinating discharge services: Less than 30 minutes - Constitutional Vitals: Temp Pulse Resp BP Pulse Ox 98.2 F 83 18 136/79 95 02/09/17 11:40 02/09/17 11:40 02/09/17 11:40 02/09/17 11:40 02/09/17 11:40 General appearance: Present: mild distress, A&O X 3, morbidly obese, pleasant, answers questions appropriately - Respiratory Respiratory exam: Present: CTAB. Absent: accessory muscle use, rales, rhonchi, wheezes - Cardiovascular Cardiovascular exam: Present: RRR, +S1, +S2. Absent: diastolic murmur, gallop, rubs, systolic murmur
== END 2017-02-09 15:04 | disposition home or self-care (01) | DRG 167 ==
LOC: 3BNU 15:23 → EMEROO 15:23 → SUATTDRO 20:13 → 3BNU 20:33
PROVIDERS: ADMIT Internal Medicine; ATTEND Hospitalist

== ENCOUNTER 2017-02-27 14:19 | Inpatient (IN) ==
--- NOTE | 2017-02-27 15:03 | Emergency Department Note ---
Disposition Clinical Impression: DVT (deep venous thrombosis) Qualifiers: DVT location: lower extremity Affected thrombotic vein of extremity: other lower extremity vein Chronicity: acute Laterality: bilateral Qualified Code(s): I82.493 - Acute embolism and thrombosis of other specified deep vein of lower extremity, bilateral Pulmonary embolus Qualifiers: Pulmonary embolism type: other Chronicity: chronic Acute cor pulmonale presence : without acute cor pulmonale Qualified Code(s): I27.82 - Chronic pulmonary embolism Disposition: Admitted As Inpatient Condition: Good Extremity Problem HPI - General Chief complaint: ED Extremity Problem,Nontraumatic Stated complaint: right leg pain/has DVT's in Time Seen by Provider: 02/27/17 14:28 Source: patient, EMS Limitations: no limitations Nursing Notes Reviewed: Yes Vital Signs Reviewed: Yes - History of Present Illness HPI Narrative: Transferred from the [place] for further evaluation of right lower extremity swelling. Patient has a history of DVT and PE. Was started on medication in December for his first episode of venous thromboembolism. He has been switched to Xeralto. The patient has had increased swelling of his leg over the last several days. Pain similar to previous DVT. Concern for worsening DVT despite anticoagulation. The records show that the patient's pulmonary embolus load has slightly decreased. DVT burden has increased. Pain Scale: 5 - Related Data Home Medications Medication Instructions Recorded Confirmed Acetaminophen [Tylenol] 650 mg PO TID 02/06/17 02/27/17 Albuterol Sulfate [Albuterol 2 puff IH QID PRN 02/06/17 02/27/17 Inhaler] Atorvastatin Calcium [Lipitor] 20 mg PO HS 02/06/17 02/27/17 Budesonide/Formoterol 160/4.5 2 puff IH BIDR 02/06/17 02/27/17 [Symbicort 160/4.5] Cholecalciferol (D-3) [Vitamin D] 2,000 unit PO DAILY 02/06/17 02/27/17 Clindamycin [Cleocin] 450 mg PO Q8H 02/06/17 02/27/17 Flecainide 100 mg PO Q12HR 02/06/17 02/27/17 Lisinopril [Zestril] 20 mg PO DAILY 02/06/17 02/27/17 Loratadine [Claritin] 10 mg PO DAILY 02/06/17 02/27/17 Methocarbamol [Robaxin] 500 mg PO Q8HR 02/06/17 02/27/17 Omeprazole [PriLOSEC] 20 mg PO BIDAC 02/06/17 02/27/17 Pregabalin [Lyrica] 150 mg PO TID 02/06/17 02/27/17 Salsalate [Disalcid] 750 mg PO BID 02/06/17 02/27/17 Venlafaxine XR (24 HR) [Effexor Xr] 150 mg PO DAILY 02/06/17 02/27/17 guaiFENesin [Guaifenesin] 400 mg PO Q12H PRN 02/06/17 02/27/17 hydroCHLOROthiazide 12.5 mg PO DAILY 02/06/17 02/27/17 [Hydrochlorothiazide] Previous Rx's Medication Instructions Recorded Diltiazem CD (24hr) [Cardizem CD] 120 mg PO DAILY #20 cap.er.24h 09/30/15 Rivaroxaban [Xarelto] 20 mg PO DAILY #30 tablet 02/09/17 Allergies Allergy/AdvReac Type Severity Reaction Status Date / Time Horse/Equine Containing Allergy Rash Verified 02/27/17 14:25 Products meperidine [From Demerol] Allergy Flushing Verified 02/27/17 14:25 Penicillins [PCN] Allergy Anaphylaxis Verified 02/27/17 14:25 All systems ED: reviewed and negative except as stated. Constitutional: Denies: fever, chills Cardiovascular: Denies: chest pain, palpitations Respiratory: Denies: cough, dyspnea Gastrointestinal: Denies: abdominal pain, nausea, vomiting Genitourinary: Denies: urgency, dysuria Musculoskeletal: Denies: back pain Integumentary: Denies: rash Neurological: Denies: headache, weakness Past Medical History - Past Medical History Medical history: Reports: arthritis, asthma, cancer, COPD, DVT, GERD, hyperlipidemia, hypertension, seizures Surgical history: Reports: cancer surgery, colectomy, herniorrhaphy Psychiatric history: Reports: depression - Social History Smoking Status: Former smoker Smokeless Tobacco Status: No Alcohol use: Reports: none Drug use: Reports: marijuana Physical Exam - General Limitations: no limitations General appearance: alert Course - Consultations Consultation #1: Discussed with oncology. Dr. Watts states that the patient has likely perez are also an eloquent with secondary to his overall size. Patient states that he is not able to take Coumadin secondary to his polypharmacy. Dr. Watts recommends Lovenox 1 mg/kg. Recommends admission to the hospital to ensure education as well as the ability to get the patient his medications. Consultation #2: Discussed with the hospitalist. We do not have social work at this time to help facilitate patient's discharge. Patient will need to be admitted for further management of worsening DVTs that failed outpatient management. Vital Signs Temperature 98.3 F 02/27/17 14:26 Pulse Rate 77 02/27/17 14:26 Respiratory Rate 20 02/27/17 14:26 Blood Pressure 156/91 02/27/17 14:26 O2 Sat by Pulse Oximetry 96 02/27/17 14:26 Temperature 98.3 F 02/27/17 14:26 Pulse Rate 61 02/27/17 16:52 Respiratory Rate 20 02/27/17 17:15 Blood Pressure 135/86 02/27/17 17:15 O2 Sat by Pulse Oximetry 95 02/27/17 16:52 Oxygen Delivery Oxygen Delivery Room Air Extremity Problem, Nontraumati - Lab Data Result diagrams: 02/27/17 15:00 02/27/17 15:00 Lab Results 02/27/17 02/27/17 02/27/17 Range/Units 15:00 15:00 15:00 WBC 7.6 (4.3-11.1) K/mcL RBC 4.13 L (4.19-5.50) M/mcL Hgb 10.7 L (12.9-16.9) g/dL Hct 33.8 L (37.5-50.1) % MCV 81.8 L (83.0-100.0) fL MCH 25.9 L (28.0-33.3) pg MCHC 31.7 (31.6-35.5) g/dL RDW 15.4 H (11.5-14.5) % Plt Count 296 (140-400) K/mcL MPV 9.9 (9.4-12.4) fL Immature Gran % 0.4 (0-4) % Seg Neutrophils % 57.0 % Lymphocytes % 28.8 % Monocytes % 11.8 % Eosinophils % 1.3 % Basophils % 0.7 % Neutrophils # 4.4 (1.6-8.9) K/mcL Lymphocytes # 2.2 (0.6-4.6) K/mcL Monocytes # 0.9 (0.0-1.3) K/mcL Eosinophils # 0.1 (0.0-0.6) K/mcL Basophils # 0.1 (0.0-0.2) K/mcL PT 19.9 H (9.4-12.1) Seconds INR 1.8 APTT 39.7 H (26.0-36.0) Seconds Sodium 139 (136-145) mEq/L Potassium 4.2 (3.5-4.5) mEq/L Chloride 102 (98-109) mEq/L Carbon Dioxide 26 (19-29) mEq/L BUN 14 (8-26) mg/dL Creatinine 1.06 (0.72-1.25) mg/dL Est GFR ( Amer) > 60 (> 60) Est GFR (Non-Af Amer) > 60 (> 60) BUN/Creatinine Ratio 13 (6-26) Glucose 84 (70-99) mg/dL Calculated Osmolality 288 (280-300) Calcium 9.4 (8.6-10.8) mg/dL
[2017-02-27 15:08] LABS: Basophils # 0.1 K/mcL (0.0-0.2); Basophils % 0.7 %; Eosinophils # 0.1 K/mcL (0.0-0.6); Eosinophils % 1.3 %; Hematocrit 33.8 % (37.5-50.1); Hemoglobin 10.7 g/dL (12.9-16.9); Immature Granulocytes % 0.4 % (0-4); Lymphocytes # 2.2 K/mcL (0.6-4.6); Lymphocytes % 28.8 %; Mean Corpuscular HGB Conc 31.7 g/dL (31.6-35.5); Mean Corpuscular Hemoglobin 25.9 pg (28.0-33.3); Mean Corpuscular Volume 81.8 fL (83.0-100.0); Mean Platelet Volume 9.9 fL (9.4-12.4); Monocytes # 0.9 K/mcL (0.0-1.3); Monocytes % 11.8 %; Neutrophils # 4.4 K/mcL (1.6-8.9); Platelet Count 296 K/mcL (140-400); Red Blood Count 4.13 M/mcL (4.19-5.50); Red Cell Distribution Width 15.4 % (11.5-14.5)
[2017-02-27 15:13] LABS: INR 1.8; Prothrombin Time 19.9 Seconds (9.4-12.1)
[2017-02-27 15:16] LABS: Activated Partial Thrombo Time 39.7 Seconds (26.0-36.0)
[2017-02-27 15:24] LABS: BUN/Creatinine Ratio 13 (6-26); Blood Urea Nitrogen 14 mg/dL (8-26); Calcium 9.4 mg/dL (8.6-10.8); Carbon Dioxide 26 mEq/L (19-29); Chloride 102 mEq/L (98-109); Glucose 84 mg/dL (70-99); Osmolality,Calculated 288 (280-300); Potassium 4.2 mEq/L (3.5-4.5); Sodium 139 mEq/L (136-145); eGFR For African Americans > 60 (> 60); eGFR For Non-African Americans > 60 (> 60)
--- NOTE | 2017-02-27 15:43 | Emergency Department Note ---
START Narrative - START START: I examined this patient and my medical decision-making was reviewed with the Resident Physician. I agree with the documented findings, disposition and treatment plan as described except to the extent set forth below. 61 year old male from the [place] presents to the ED for evalatuion of recurrent and worsening clot burden of his DVTs in his left leg. He has had incread swelling to his left lower extremity and increased pain. He was recently on eliquis but then swithed to xarelto due to increased frequency in clots with PEs, and then has a filter placed inthe right groin. Today he had a repeat ultrasound and appears to have incresed clot burden in his left leg. We will US his right LE and then consult with hem/onc, his doctor is Dr Brito and Dr. Cotton placed the filter.
[2017-02-27] MEDS ORDERED: *HR* Enoxaparin 120 MG/0.8 ML SYRINGE SQ STA (16:05)
[2017-02-27] MEDS ORDERED: Acetaminophen 325 MG TABLET PO PRN (17:23)
[2017-02-27] MEDS ORDERED: Naloxone 0.4 MG/ML INJ IVP PRN (17:23)
[2017-02-27] MEDS ORDERED: GuaiFENesin Liq 200 MG/10 ML UDC PO PRN (17:25)
--- NOTE | 2017-02-27 17:36 | Internal Med History&Physical ---
Date of Encounter: 02/27/17 Time of Encounter: 17:20 Assessment and Plan (1) Recurrent deep vein thrombosis Current visit: Yes Status: Acute Patient with recurrent acute deep vein thrombosis. Failed treatment with Xarelto. She has been started on Lovenox 1 mg per KG per hematology recommendations. We will continue this medication. High risk for complications due to high clot burden. Patient on Fluconazole for cryptococcal pneumonia. Fluconazole inhibits CY increasing Xarelto levels and increases risk of bleeding. Likely not cause of failed efficacy. There is no interaction between fluconazole and lovenox. (2) Deep venous thrombosis Current visit: Yes Status: Acute Acute and chronic B/L lower ext DVT. Management as above. Patient will need 6 months treatment course with Lovenox. Qualifiers: DVT location: lower extremity Affected thrombotic vein of extremity: other lower extremity vein Chronicity: acute Laterality: bilateral Qualified Code(s): I82.493 - Acute embolism and thrombosis of other specified deep vein of lower extremity, bilateral (3) Pulmonary emboli Current visit: Yes Status: Chronic Recent Acute PE. Continue anticoagulation. Monitor O2 sats. O2 qualification prior to discharge. Qualifiers: Pulmonary embolism type: other Chronicity: chronic Acute cor pulmonale presence: without acute cor pulmonale Qualified Code(s): I27.82 - Chronic pulmonary embolism (4) Hypertension Current visit: Yes Status: Chronic Controlled. Continue home meds. MOnitor BP Qualifiers: Hypertension type: essential hypertension Qualified Code(s): I10 - Essential (primary) hypertension (5) Atrial fibrillation Current visit: Yes Status: Chronic Regular rhythm and rate controlled at this time. Continue diltiazem. Qualifiers: Atrial fibrillation type: paroxysmal Qualified Code(s): I48.0 - Paroxysmal atrial fibrillation Internal Medicine - H&P: HPI Chief complaint: Right lower extremity swelling Admitted From: Emergency Dept Plans for Post Hospital Care: Home History of present illness: Mr. Devlin is a 61 year old male patient with a history of recent acute DVT and acute pulmonary embolism, atrial fibrillation, hypertension presented to the ER with complaints of increased swelling in his right lower extremity. This has been going on for about 1 week. Patient had been discharged from the hospital 3 weeks back following hospitalization for acute deep vein thrombosis and pulmonary embolism. During that time he had an IVC filter placed due to high clot burden. He says he has been taking his Xarelto as prescribed and has not missed any doses of this medication. He denies any fever or chills. Denies any chest pain. He has noted that his right lower extremity is much more swollen compared to his left. Patient has been taking fluconazole for cryptococcal infection in his lungs. Past Med Surg Social Fam HX - Past Medical History Attestation: Yes The following information was validated with the patient. Source: patient, old records reviewed Medical history: arthritis, asthma, atrial fibrillation, cancer, COPD, DVT, GERD , hyperlipidemia, hypertension, seizures Psychiatric history: depression - Past Surgical History Surgical History: cancer surgery, colectomy, herniorrhaphy - Social History Smoking Status: Former smoker Smokeless Tobacco Status: No Alcohol use: none Drug use: marijuana - Family History Mother Living Status: Still Living Hx Family Cardiac Disorders: Yes (HTN) Father Living Status: Still Living Hx Family Cardiac Disorders: Yes (stents) Internal Medicine - H&P: Meds Diltiazem CD (24hr) [Cardizem CD] 120 mg PO DAILY #20 cap.er.24h 09/30/15 [Rx] Acetaminophen [Tylenol] 650 mg PO TID 02/06/17 [History] Albuterol Sulfate [Albuterol Inhaler] 2 puff IH QID PRN 02/06/17 [History] Atorvastatin Calcium [Lipitor] 20 mg PO HS 02/06/17 [History] Budesonide/Formoterol 160/4.5 [Symbicort 160/4.5] 2 puff IH BIDR 02/06/17 [ History] Cholecalciferol (D-3) [Vitamin D] 2,000 unit PO DAILY 02/06/17 [History] Clindamycin [Cleocin] 450 mg PO Q8H 02/06/17 [History] Flecainide 100 mg PO Q12HR 02/06/17 [History] Lisinopril [Zestril] 20 mg PO DAILY 02/06/17 [History] Loratadine [Claritin] 10 mg PO DAILY 02/06/17 [History] Methocarbamol [Robaxin] 500 mg PO Q8HR 02/06/17 [History] Omeprazole [PriLOSEC] 20 mg PO BIDAC 02/06/17 [History] Pregabalin [Lyrica] 150 mg PO TID 02/06/17 [History] Salsalate [Disalcid] 750 mg PO BID 02/06/17 [History] Venlafaxine XR (24 HR) [Effexor Xr] 150 mg PO DAILY 02/06/17 [History] guaiFENesin [Guaifenesin] 400 mg PO Q12H PRN 02/06/17 [History] hydroCHLOROthiazide [Hydrochlorothiazide] 12.5 mg PO DAILY 02/06/17 [History] Rivaroxaban [Xarelto] 20 mg PO DAILY #30 tablet 02/09/17 [Rx] 3 Allergy/AdvReac Type Severity Reaction Status Date / Time Horse/Equine Containing Allergy Rash Verified 02/27/17 14:25 Products meperidine [From Demerol] Allergy Flushing Verified 02/27/17 14:25 Penicillins [PCN] Allergy Anaphylaxis Verified 02/27/17 14:25 All Systems PM: A 10-system review of systems was performed and is negative for pertinent findings except as documented above in the HPI. - Constitutional Constitutional: fatigue, malaise, no chills, no fever(s), no night sweats - EENT Eyes: no change in vision, no discharge, no pain, no photophobia Ears: no ear discharge, no ear pain, no tinnitus Nose, mouth and throat: no dysphagia, no nasal discharge, no neck pain, no sore throat - Cardiovascular Cardiovascular ROS IM: dyspnea on exertion, no chest pain, no diaphoresis, no dyspnea, no lightheadedness, no palpitations, no syncope - Respiratory Respiratory: dyspnea on exertion, no cough, no dyspnea, no wheezing, no excessive phlegm production - Gastrointestinal Gastrointestinal: no abdominal pain, no diarrhea, no hematemesis, no hematochezia, no melena, no nausea, no vomiting - Musculoskeletal Musculoskeletal ROS IM: no numbness, no tingling - Integumentary Integumentary IM: no rash, no unusual bruising - Neurological Neurological ROS: no confusion, no convulsions, no focal weakness, no numbness, no tingling, no tremor(s) - Hematologic/Lymphatic Hematologic/Lymphatic: no easy bruising - Constitutional Vitals: Temp Pulse Resp BP Pulse Ox 98.3 F 61 20 135/86 95 02/27/17 14:26 02/27/17 16:52 02/27/17 17:15 02/27/17 17:15 02/27/17 16:52 General appearance: Present: cooperative, mild distress, A&O X 3, answers questions appropriately - Eye Eye exam: Present: EOMI, PERRL, conjuntiva pink, sclera anicteric - Neck Neck exam general surgery: Present: supple, trachea midline. Absent: lymphadenopathy - Respiratory Respiratory exam: Present: CTAB. Absent: accessory muscle use, rales, rhonchi, wheezes - Cardiovascular Cardiovascular exam: Present: RRR, +S1, +S2. Absent: diastolic murmur, gallop, rubs, systolic murmur - GI/Abdominal GI/Abdominal exam: Present: normal bowel sounds, soft, no peritoneal signs. Absent: distended, tenderness - Extremities Exam Extremities exam: Present: tenderness (right calf), warm, radial pulses palpable and symmetrical. Absent: calf tenderness, cyanotic, pedal edema Additional comments: Swelling of his right lower extremity > than left - Neurological Exam Neurological exam: Present: alert, oriented X3, no focal deficits. Absent: facial droop, speech deficit - Skin Skin exam: Present: dry, intact Internal Med - H&P Results - Labs CBC & Chem 7: 02/27/17 15:00 02/27/17 15:00
[2017-02-27] MEDS: Pregabalin 75 MG CAPSULE PO SCH (20:17)
[2017-02-27] MEDS: SALSALATE 750 MG PO SCH (20:19)
[2017-02-27] MEDS: Budesonide/Formoterol 160/4.5 MDI IH SCH (21:14)
[2017-02-27] MEDS: Methocarbamol 500 MG TABLET PO SCH (23:49)
[2017-02-28] MEDS ORDERED: *HR* Enoxaparin 120 MG/0.8 ML SYRINGE SQ SCH (06:00)
[2017-02-28 06:31] LABS: Basophils # 0.1 K/mcL (0.0-0.2); Eosinophils # 0.1 K/mcL (0.0-0.6); Hematocrit 34.4 % (37.5-50.1); Hemoglobin 11.1 g/dL (12.9-16.9); Immature Granulocytes % 0.4 % (0-4); Lymphocytes # 1.6 K/mcL (0.6-4.6); Lymphocytes % 31.3 %; Mean Corpuscular HGB Conc 32.3 g/dL (31.6-35.5); Mean Corpuscular Hemoglobin 26.4 pg (28.0-33.3); Mean Corpuscular Volume 81.7 fL (83.0-100.0); Mean Platelet Volume 10.8 fL (9.4-12.4); Monocytes # 0.6 K/mcL (0.0-1.3); Monocytes % 10.6 %; Neutrophils # 2.9 K/mcL (1.6-8.9); Platelet Count 277 K/mcL (140-400); Red Blood Count 4.21 M/mcL (4.19-5.50); Red Cell Distribution Width 15.3 % (11.5-14.5); Segmented Neutrophils % 55.7 %
[2017-02-28 06:44] LABS: BUN/Creatinine Ratio 20 (6-26); Blood Urea Nitrogen 21 mg/dL (8-26); Calcium 9.1 mg/dL (8.6-10.8); Carbon Dioxide 25 mEq/L (19-29); Chloride 106 mEq/L (98-109); Glucose 98 mg/dL (70-99); Osmolality,Calculated 297 (280-300); Potassium 4.2 mEq/L (3.5-4.5); Sodium 142 mEq/L (136-145); eGFR For African Americans > 60 (> 60); eGFR For Non-African Americans > 60 (> 60)
[2017-02-28 07:02] LABS: Heparin anti-factor XA LMWH 0.72 IU/mL (0.50-1.10); INR 1.3; Prothrombin Time 14.3 Seconds (9.4-12.1)
[2017-02-28 07:04] LABS: Activated Partial Thrombo Time 36.6 Seconds (26.0-36.0)
[2017-02-28 07:16] VITALS: BP 113/69
[2017-02-28] MEDS: Pregabalin 75 MG CAPSULE PO SCH (08:16)
[2017-02-28] MEDS: Methocarbamol 500 MG TABLET PO SCH (08:17)
[2017-02-28] MEDS: SALSALATE 750 MG PO SCH (08:17)
[2017-02-28] MEDS ORDERED: hydroCHLOROthiazide 25 MG TABLET PO SCH (09:00)
[2017-02-28] MEDS ORDERED: Loratadine 10 MG TABLET PO SCH (09:00)
[2017-02-28] MEDS ORDERED: Venlafaxine XR (24 HR) 150 MG CAP.ER.24H PO SCH (09:00)
[2017-02-28] MEDS ORDERED: Cholecalciferol (D-3) 1,000 UNIT TABLET PO SCH (09:00)
[2017-02-28] MEDS ORDERED: Lisinopril 20 MG TABLET PO SCH (09:00)
[2017-02-28] MEDS ORDERED: Diltiazem CD (24hr) 120 MG CAPSULE PO SCH (09:00)
[2017-02-28] MEDS ORDERED: *HR* HYDROcodone/Acet 5/325 mg TABLET PO PRN (09:36)
--- NOTE | 2017-02-28 09:38 | Discharge Summary ---
Date of Encounter: 02/28/17 Time of Encounter: 09:25 - Discharge Diagnosis (1) Recurrent deep vein thrombosis Priority: Primary Status: Acute (2) Deep venous thrombosis Priority: Secondary Status: Acute Qualifiers: DVT location: lower extremity Affected thrombotic vein of extremity: other lower extremity vein Chronicity: acute Laterality: bilateral Qualified Code(s): I82.493 - Acute embolism and thrombosis of other specified deep vein of lower extremity, bilateral (3) Pulmonary emboli Priority: Secondary Status: Chronic Qualifiers: Pulmonary embolism type: other Chronicity: chronic Acute cor pulmonale presence: without acute cor pulmonale Qualified Code(s): I27.82 - Chronic pulmonary embolism (4) Hypertension Priority: Secondary Status: Chronic Qualifiers: Hypertension type: essential hypertension Qualified Code(s): I10 - Essential (primary) hypertension (5) Atrial fibrillation Priority: Secondary Status: Chronic Qualifiers: Atrial fibrillation type: paroxysmal Qualified Code(s): I48.0 - Paroxysmal atrial fibrillation - Discharge Medications Prescriptions: HYDROcodone/Acet 5/325 mg [[place] 5-325 mg] 1 tab PO Q4HR PRN #14 tablet PRN Reason: Moderate Pain Enoxaparin [Lovenox] 110 mg SQ Q12HR #60 syringe Home Medications: Diltiazem CD (24hr) [Cardizem CD] 120 mg PO DAILY #20 cap.er.24h 09/30/15 [Rx] Acetaminophen [Tylenol] 650 mg PO TID 02/06/17 [History] Albuterol Sulfate [Albuterol Inhaler] 2 puff IH QID PRN 02/06/17 [History] Atorvastatin Calcium [Lipitor] 20 mg PO HS 02/06/17 [History] Budesonide/Formoterol 160/4.5 [Symbicort 160/4.5] 2 puff IH BIDR 02/06/17 [ History] Cholecalciferol (D-3) [Vitamin D] 2,000 unit PO DAILY 02/06/17 [History] Clindamycin [Cleocin] 450 mg PO Q8H 02/06/17 [History] Flecainide 100 mg PO Q12HR 02/06/17 [History] Lisinopril [Zestril] 20 mg PO DAILY 02/06/17 [History] Loratadine [Claritin] 10 mg PO DAILY 02/06/17 [History] Methocarbamol [Robaxin] 500 mg PO Q8HR 02/06/17 [History] Omeprazole [PriLOSEC] 20 mg PO BIDAC 02/06/17 [History] Pregabalin [Lyrica] 150 mg PO TID 02/06/17 [History] Salsalate [Disalcid] 750 mg PO BID 02/06/17 [History] Venlafaxine XR (24 HR) [Effexor Xr] 150 mg PO DAILY 02/06/17 [History] guaiFENesin [Guaifenesin] 400 mg PO Q12H PRN 02/06/17 [History] hydroCHLOROthiazide [Hydrochlorothiazide] 12.5 mg PO DAILY 02/06/17 [History] Enoxaparin [Lovenox] 110 mg SQ Q12HR #60 syringe 02/28/17 [Rx] HYDROcodone/Acet 5/325 mg [[place] 5-325 mg] 1 tab PO Q4HR PRN #14 tablet [Rx] Allergies/Adverse Reactions: 3 Allergy/AdvReac Type Severity Reaction Status Date / Time Horse/Equine Containing Allergy Rash Verified 02/27/17 14:25 Products meperidine [From Demerol] Allergy Flushing Verified 02/27/17 14:25 Penicillins [PCN] Allergy Anaphylaxis Verified 02/27/17 14:25 Date of admission: 02/27/17 16:56 [facility] care physician: [facility] Consults: 02/27/17 17:22 Consult to Oncology Hematology [CONS] Routine Consulting Provider: Segundo Watts Reason for Consult: Recurrent Venous Thromboembolism Time Notified: 17:23 Call Completed: Yes 02/27/17 18:04 Consult to Occupational Therapy [CONS] Routine Comment: Evaluate, develop and implement POC Reason for Consult: Gen weakness Consult to Physical Therapy [CONS] Routine Comment: Evaluate, develop and implement POC Reason for Consult: Gen weakness Consult to Log Handling Equipment Operator [CONS] Routine Reason for SW Consult: DC planning Discharging clinician: Remi Dodson Anticipated date of discharge: 02/28/17 - Patient Status Disposition: Home, Self-Care Condition: Good Functional capacity at discharge: independent ambulation Overall status at discharge: patient is progressing back to baseline - Ambulatory Orders Ambulatory Orders: Heparin anti-factor XA LMWH [COAG] Time Frame: 2 Days, Facility: [facility], Location: Lab - Discharge Instructions Instructions: Pulmonary Embolism (DC), Atrial Fibrillation (DC) Follow Up With: [facility] [Outside] (In 1-2 weeks) Forms: ED Satisfaction Letter Additional Instructions: Follow-up with hematology as scheduled - Diet and Activity Activity: increase activity as tolerated Diet: low fat, low cholesterol, low salt diet Hospital course: Mr. Devlin is a 61 year old male patient with a history of recently diagnosed deep vein thrombosis and pulmonary embolism status post IVC filter placement presented to the ER with complaints of worsening swelling in his right lower extremity. Venous ultrasound done in the ER revealed an acute recurrent thrombosis involving the right lower extremity in the distal iliac and common femoral vein. Patient also had a deep vein thrombosis in the left popliteal vein which appears to be chronic. He had been on Xarelto for the past 3 weeks and developed acute thrombus despite being on this medication. As such, hematology was consulted. They recommended placing the patient on Lovenox twice daily at 1 mg per KG. Patient has been started on this medication and will continue to take it as outpatient and will follow up with hematology for further medical recommendations. This morning he feels somewhat better and is able to ambulate better. He remains dyspneic with exertion due to his pulmonary embolism. He however feels that he will be able to manage himself well at home and wishes to be discharged. He has a follow-up appointment scheduled with rheumatology later this week. His anti-X A level is therapeutic at this time. - Time Spent with Patient Total time spent providing and/or coordinating discharge services: Less than 30 minutes (25 min) - Constitutional Vitals: Temp Pulse Resp BP Pulse Ox 97.8 F 86 17 113/69 95 02/28/17 07:15 02/28/17 07:15 02/28/17 07:15 02/28/17 07:15 02/28/17 07:15 General appearance: Present: cooperative, A&O X 3, morbidly obese, no acute distress, answers questions appropriately - Neck Neck exam general surgery: Present: supple, trachea midline. Absent: lymphadenopathy - Respiratory Respiratory exam: Present: CTAB. Absent: accessory muscle use, rales, rhonchi, wheezes - Cardiovascular Cardiovascular exam: Present: RRR, +S1, +S2. Absent: diastolic murmur, gallop, rubs, systolic murmur - GI/Abdominal GI/Abdominal exam: Present: normal bowel sounds, soft, no peritoneal signs. Absent: distended, tenderness - Extremities Exam Extremities exam: Present: warm, radial pulses palpable and symmetrical. Absent : calf tenderness, cyanotic, pedal edema Additional comments: Swelling in the right lower extremity greater compared to the left - Neurological Exam Neurological exam: Present: alert, CN II-XII intact, oriented X3, no focal deficits. Absent: facial droop, speech deficit - Skin Skin exam: Present: dry, intact
[2017-02-28] MEDS: Budesonide/Formoterol 160/4.5 MDI IH SCH (11:08)
== END 2017-02-28 12:30 | disposition home or self-care (01) | DRG 300 ==
LOC: EMEROO 14:19 → 3ANU 16:56
PROVIDERS: ADMIT Family Medicine; ATTEND Internal Medicine